=== PATIENT | male | born 1935 | race Caucasian/White ===

== ENCOUNTER 2017-01-03 12:42 | Inpatient (IN) | payer MEDICARE, OTHER ==
[~2017-01-03] VITALS: Ht 175.3 cm; Wt 93.0 kg
[2017-01-03] MEDS ORDERED: SOD CHLORIDE 0.9% 1,000 ML IV STA (12:47)
[2017-01-03] MEDS ORDERED: ONDANSETRON 4 MG INJ IV STA (12:47)
[2017-01-03] MEDS ORDERED: LOSA50TA6 PO (13:23)
[2017-01-03] MEDS ORDERED: ATOR40TA68 PO (13:24)
[2017-01-03] MEDS ORDERED: RIVA20TA PO (13:24)
[2017-01-03] MEDS ORDERED: CARV25TA79 PO (13:24)
[2017-01-03] MEDS ORDERED: SPIR25TA PO (13:25)
[2017-01-03] MEDS ORDERED: CANA300T PO (13:26)
[2017-01-03] MEDS ORDERED: SITA100T8 PO (13:26)
[2017-01-03] MEDS ORDERED: RANI150T5 PO (13:27)
[2017-01-03] MEDS ORDERED: TAMS-14 PO (13:27)
[2017-01-03] MEDS ORDERED: GLIM4TAB PO (13:27)
[2017-01-03 13:28] LABS: ADD SCAN DIFF NO
[2017-01-03] MEDS ORDERED: DOCU250C58 PO (13:28)
[2017-01-03] MEDS ORDERED: FER325 PO (13:28)
[2017-01-03] MEDS ORDERED: BUDE6HFA INHALATION (13:29)
[2017-01-03] MEDS ORDERED: LANT3I SC (13:29)
[2017-01-03 13:30] LABS: ABNORMAL IP MESSAGE 1; HEMATOCRIT 16.8 % (42.0-52.0); MEAN CORPUSCULAR HEMOGLOBIN 27.7 pg (29.0-33.0); MEAN CORPUSCULAR HGB CONC 29.2 g/dl (32.0-37.0); MEAN CORPUSCULAR VOLUME 94.9 fl (82.0-101.0); MEAN PLATELET VOLUME 9.9 fl (7.4-10.4); PLATELET COUNT 235 10^3/UL (140-415); RED BLOOD COUNT 1.77 10^6/ul (4.70-6.10); RED CELL DISTRIBUTION WIDTH 14.6 % (11.5-14.5)
[2017-01-03] MEDS ORDERED: NIFE30TA60 PO (13:30)
[2017-01-03 13:46] LABS: INR 2.19; PROTIME 24.6 Sec (12.2-14.2); PT RATIO 1.9
[2017-01-03 13:54] LABS: ALBUMIN 3.3 g/dl (3.3-4.9); ALBUMIN/GLOBULIN RATIO 1.26; CALCIUM 8.6 mg/dl (8.4-10.2); CREATININE 1.51 mg/dl (0.61-1.24); POTASSIUM 4.2 mmol/L (3.5-5.1); TOTAL PROTEIN 5.9 g/dl (6.1-8.1)
[2017-01-03 14:00] LABS: BASOPHILS % 0.3 % (0.0-2.0); EOSINOPHILS # 0.1 10^3/ul (0.0-0.5); EOSINOPHILS % 1.1 % (0.0-7.0); LYMPHOCYTES # 1.4 10^3/ul (0.8-2.9); LYMPHOCYTES % 17.5 % (15.0-51.0); MONOCYTE # 0.5 10^3/ul (0.3-0.9); MONOCYTES % 6.5 % (0.0-11.0); NEUTROPHIL # 5.8 10^3/ul (1.6-7.5); NEUTROPHILS % 73.8 % (39.0-77.0)
[2017-01-03] MEDS ORDERED: FAMOTIDINE 20 MG INJ IV ONE (14:00)
[2017-01-03 14:01] LABS: HEMOGLOBIN 4.9 g/dl (14.0-18.0)
[2017-01-03 14:08] LABS: TROPONIN-I 0.022 ng/ml (0.00-0.12)
[2017-01-03] MEDS ORDERED: FUROSEMIDE 20 MG INJ IV ONE ×2 (15:00→16:00)
[2017-01-03] MEDS ORDERED: ONDANSETRON 4 MG INJ IV PRN ×2 (15:00→16:00)
[2017-01-03] MEDS ORDERED: ACETAMINOPHEN 325 MG TAB PO PRN ×2 (15:00→16:00)
[2017-01-03 15:30] VITALS: TEMP 97.8
[2017-01-03 15:57] LABS: IRON 18 ug/dl (35-150)
[2017-01-03] MEDS ORDERED: GLUCOSE GEL 15 GRAM TUBE PO PRN ×2 (16:00)
[2017-01-03] MEDS ORDERED: GLUCOSE GEL 15 GRAM TUBE BUCCAL PRN (16:00)
[2017-01-03] MEDS ORDERED: HYPOGLYCEMIA PROTOCOL when Glucose is <70 mg/dL or symptomatic <90 mg/dL. XX ONE (16:00)
[2017-01-03] MEDS ORDERED: Discontinue Glyburide, Glipizide, and/or Glimepiride prior to starting Insulin XX ONE (16:00)
[2017-01-03] MEDS ORDERED: morphine 2 MG INJ IV PRN (16:00)
[2017-01-03] MEDS ORDERED: ALBUTEROL/IPRATROPIUM (NEB) 3 ML AMP HHN PRN (16:00)
[2017-01-03] MEDS: PANTOPRAZOLE 40 MG INJ IV SCH ×2 (16:00→20:53)
[2017-01-03] MEDS ORDERED: DEXTROSE 50% 50 ML SYRINGE IV PRN ×2 (16:00)
[2017-01-03] MEDS ORDERED: GLUCAGON 1 MG INJ IM PRN (16:00)
[2017-01-03] MEDS ORDERED: NACL 0.9% 3 ML SYG IV SCH (16:00)
[2017-01-03 16:07] LABS: TOTAL IRON BINDING CAPACITY 381 ug/dl (241-421)
[2017-01-03 16:12] LABS: ADD UMIC YES; URINE BILIRUBIN (Dip) NEGATIVE (NEGATIVE); URINE BLOOD (Dip) NEGATIVE (NEGATIVE); URINE COLOR LT. YELLOW (YELLOW); URINE GLUCOSE (Dip) >=1000 % (NEGATIVE); URINE KETONES (Dip) NEGATIVE (NEGATIVE); URINE LEUKOCYTE ESTERASE (Dip) TRACE (NEGATIVE); URINE NITRITE (Dip) NEGATIVE (NEGATIVE); URINE TOTAL PROTEIN (Dip) NEGATIVE (NEGATIVE); URINE UROBILINOGEN (Dip) 0.2 E.U./dL (0.1-1.0)
[2017-01-03 16:31] LABS: THYROID STIMULATING HORMONE 1.41 MIU/L (0.465-4.680)
[2017-01-03 16:35] LABS: FERRITIN 6.6 ng/ml (11.1-264.0)
[2017-01-03 16:38] LABS: BACTERIA,URINE FEW; TRANSITIONAL EPI CELLS,URINE FEW; URINE RBCS NONE SEEN /HPF (0)
[2017-01-03 16:51] VITALS: BP 168/71; PULSE 78; RESP 18
--- NOTE | 2017-01-03 16:51 | ERA ---
ER Documentation Chief Complaint Date/Time DATE: 01/03/17 TIME: 16:44 Chief Complaint GENERAL WEAKNESS FOR THE PAST FEW DAYS WITH BLACK STOOLS . MILD AP HPI 81-year-old male is brought in by ambulance for black stools for the last few days with generalized weakness, tiredness. He has a history of an ulcer. He denies abdominal pain currently. He has had no fevers and chills. Has occasional chest pain but no chest pain now. ROS All systems reviewed and are negative except as per history of present illness. Medications Home Meds Reported Medications Nifedipine* (Nifedipine ER*) 30 Mg Tablet.sa, 30 MG PO DAILY, TAB.SA 01/03/17 Insulin Glargine* (Lantus*) 100 Unit/Ml Soln, 20 UNIT SC QHS, #1 VIAL 01/03/17 Budesonide-Formoterol Fumarate* (Symbicort*) 160-4.5 Hfa.aer.ad, 2 PUFF INHALATION BID, #1 EACH 01/03/17 Ferrous Sulfate* (Ferrous Sulfate*) 325 Mg Tabec, 325 MG PO DAILY, TAB 01/03/17 Docusate Sodium* (Colace*) 250 Mg Capsule, 250 MG PO BID, #60 CAP 01/03/17 Tamsulosin Hcl* (Flomax*) 0.4 Mg Cap.er.24h, 0.4 MG PO DAILY, CAP 01/03/17 Ranitidine Hcl* (Ranitidine Hcl*) 150 Mg Tablet, 150 MG PO HS, #30 TAB 01/03/17 Glimepiride* (Glimepiride*) 4 Mg Tablet, 4 MG PO WITH BREAKFAST DINNE, TAB 01/03/17 Canagliflozin (Invokana) 300 Mg Tablet, 300 MG PO DAILY, TAB 01/03/17 Sitagliptin* (Januvia*) 100 Mg Tablet, 100 MG PO DAILY, #30 TAB 01/03/17 Spironolactone* (Aldactone*) 25 Mg Tablet, 12.5 MG PO DAILY Y for PRN, #60 TAB 01/03/17 Atorvastatin* (Atorvastatin*) 40 Mg Tablet, 40 MG PO QHS, #30 TAB 01/03/17 Carvedilol* (Carvedilol*) 25 Mg Tablet, 25 MG PO BID, #60 TAB 01/03/17 Rivaroxaban* (Xarelto*) 20 Mg Tablet, 20 MG PO WITH DINNER, TAB 01/03/17 Losartan Potassium* (Losartan Potassium*) 50 Mg Tablet, 50 MG PO BID, TAB 01/03/17 Allergies Allergies: Coded Allergies: No Known Allergy (Unverified , 01/03/17) PMhx/Soc History of Surgery: Yes (CABG, AICD) Anesthesia Reaction: No Hx Neurological Disorder: No Hx Respiratory Disorders: Yes (Asthma) Hx Cardiac Disorders: Yes (CHF, HTN) Hx Psychiatric Problems: No Hx Miscellaneous Medical Probl: Yes (DM II, Hyperlipidemia) Hx Alcohol Use: No Hx Substance Use: No Hx Tobacco Use: Yes Smoking Status: Former smoker Physical Exam Vitals Vital Signs Date Time Temp Pulse Resp B/P Pulse Ox O2 Delivery O2 Flow Rate FiO2 01/03/17 15:30 97.8 69 17 147/58 100 Room Air 01/03/17 15:00 97.8 69 13 131/53 97 Room Air 01/03/17 13:41 69 12 116/47 96 Room Air 01/03/17 13:08 98.0 74 20 101/50 98 Physical Exam Const: [] No distress Head: Atraumatic Eyes: Pale infraorbital conjunctiva. PERRLA, EOMI ENT: Normal External Ears, Nose and Mouth. Neck: Full range of motion..~ No meningismus. Resp: Clear to auscultation bilaterally Cardio: Regular rate and rhythm, no murmurs Abd: Soft, non tender, non distended. Normal bowel sounds Skin: No petechiae or rashes Back: No midline or flank tenderness Ext: No cyanosis, or edema Neur: Awake and alert and oriented 3, no focal deficit Psych: Normal Mood and Affect Result Diagram: 01/03/17 1320 01/03/17 1320 Results 24 hrs Laboratory Tests Test 01/03/17 13:20 01/03/17 15:45 White Blood Count 7.910^3/ul Red Blood Count 1.7710^6/ul Hemoglobin 4.9g/dl Hematocrit 16.8% Mean Corpuscular Volume 94.9fl Mean Corpuscular Hemoglobin 27.7pg Mean Corpuscular Hemoglobin Concent 29.2g/dl Red Cell Distribution Width 14.6% Platelet Count 18829^3/UL Mean Platelet Volume 9.9fl Neutrophils % 73.8% Lymphocytes % 17.5% Monocytes % 6.5% Eosinophils % 1.1% Basophils % 0.3% Nucleated Red Blood Cells % 0.0/100WBC Neutrophils # 5.810^3/ul Lymphocytes # 1.410^3/ul Monocytes # 0.510^3/ul Eosinophils # 0.110^3/ul Basophils # 0.010^3/ul Nucleated Red Blood Cells # 0.010^3/ul Prothrombin Time 24.6Sec Prothrombin Time Ratio 1.9 INR International Normalized Ratio 2.19 Activated Partial Thromboplast Time 38.0Sec Sodium Level 138mmol/L Potassium Level 4.2mmol/L Chloride Level 112mmol/L Carbon Dioxide Level 20mmol/L Anion Gap 10 Blood Urea Nitrogen 37mg/dl Creatinine 1.51mg/dl Glucose Level 187mg/dl Calcium Level 8.6mg/dl Iron Level 18ug/dl Total Iron Binding Capacity 381ug/dl Percent Iron Saturation 5% SAT Ferritin 6.6ng/ml Total Bilirubin 0.0mg/dl Direct Bilirubin 0.00mg/dl Indirect Bilirubin 0.0mg/dl Aspartate Amino Transf (AST/SGOT) 15IU/L Alanine Aminotransferase (ALT/SGPT) 35IU/L Alkaline Phosphatase 47IU/L Troponin I 0.022ng/ml B-Type Natriuretic Peptide 1500PG/ML Total Protein 5.9g/dl Albumin 3.3g/dl Globulin 2.60g/dl Albumin/Globulin Ratio 1.26 Thyroid Stimulating Hormone (TSH) 1.410MIU/L Free Thyroxine 0.97ng/dl Urine Color LT. YELLOW Urine Clarity CLEAR Urine pH 5.0 Urine Specific [place] 1.010 Urine Ketones NEGATIVE Urine Nitrite NEGATIVE Urine Bilirubin NEGATIVE Urine Urobilinogen 0.2 E.U./dL Urine Leukocyte Esterase TRACE Urine Microscopic RBC NONE SEEN/HPF Urine Microscopic WBC 10-25/HPF Urine Transitional Epithelial Cells FEW Urine Bacteria FEW Urine Hemoglobin NEGATIVE Urine Glucose >=1000% Urine Total Protein NEGATIVE Current Medications Medications (Trade) Dose Ordered Sig/Rimma Route PRN Reason Start Time Stop Time Status Last Admin Dose Admin Sodium Chloride (NS) 1,000 ml @ 1,000 mls/hr Q1H STAT IV 01/03/17 12:47 01/03/17 13:46 DC 01/03/17 13:41 Ondansetron HCl (Zofran Inj) 4 mg ONCE STAT IV 01/03/17 12:47 01/03/17 12:51 DC 01/03/17 14:44 Famotidine (Pepcid Iv) 20 mg ONCE ONCE IV 01/03/17 14:00 01/03/17 14:01 DC 01/03/17 14:44 Ondansetron HCl (Zofran Inj) 4 mg ER BRIDGE PRN IV NAUSEA AND/OR VOMITING 01/03/17 15:00 01/04/17 14:59 Acetaminophen (Tylenol Tab) 650 mg ER BRIDGE PRN PO MILD PAIN/FEVER 01/03/17 15:00 01/04/17 14:59 Furosemide (Lasix) 20 mg ONCE ONCE IV 01/03/17 15:00 01/03/17 15:01 DC 01/03/17 16:08 Carvedilol (Coreg) 6.25 mg BID PO 01/03/17 21:00 Insulin Glargine (Lantus) 20 unit QHS SC 01/03/17 21:00 Ranitidine HCl (Zantac) 150 mg HS PO 01/03/17 21:00 Tamsulosin HCl (Flomax) 0.4 mg DAILY PO 01/04/17 09:00 Salmeterol Xinafoate/ Fluticasone (Advair 250/50 Diskus) 1 inh BID INH 01/03/17 21:00 Insulin Aspart (Novolog Insulin Pen) NOVOLOG *MODERATE* ALGORI... Q4 SC 01/03/17 17:00 Miscellaneous Information (* Miscellaneous Pharmacy Order) HYPOGLYCEMIA PROTOCOL w... ONCE ONCE XX 01/03/17 16:00 01/03/17 16:01 DC Miscellaneous Information (* Miscellaneous Pharmacy Order) Discontinue Glyburide, Glipizide,... ONCE ONCE XX 01/03/17 16:00 01/03/17 16:01 DC Miscellaneous Information (* Miscellaneous Pharmacy Order) Discontinue all previ... ONCE ONCE XX 01/03/17 16:00 01/03/17 16:01 DC Albuterol/ Ipratropium (Duoneb) 3 ml Q4H RESP THERAPY PRN HHN SHORTNESS OF BREATH 01/03/17 16:00 Furosemide (Lasix) 20 mg ONCE ONCE IV 01/03/17 16:00 01/03/17 16:01 DC Miscellaneous Information 1 ea NOTE XX 01/03/17 16:00 Glucose (Glutose) 15 gm Q15M PRN PO DECREASED GLUCOSE 01/03/17 16:00 Glucose (Glutose) 22.5 gm Q15M PRN PO DECREASED GLUCOSE 01/03/17 16:00 Dextrose (D50w Syringe) 25 ml Q15M PRN IV DECREASED GLUCOSE 01/03/17 16:00 Dextrose (D50w Syringe) 50 ml Q15M PRN IV DECREASED GLUCOSE 01/03/17 16:00 Glucagon (Glucagen) 1 mg Q15M PRN IM DECREASED GLUCOSE 01/03/17 16:00 Glucose (Glutose) 15 gm Q15M PRN BUCCAL DECREASED GLUCOSE 01/03/17 16:00 IV Flush (NS 3 ml) 3 ml PER PROTOCOL IV 01/03/17 16:00 Ondansetron HCl (Zofran Inj) 4 mg Q6H PRN IV NAUSEA AND/OR VOMITING 01/03/17 16:00 Acetaminophen (Tylenol Tab) 650 mg Q6H PRN PO PAIN LEVEL 1-3 OR FEVER 01/03/17 16:00 Morphine Sulfate (morphine) 2 mg Q4H PRN IV PAIN LEVEL 7-10 01/03/17 16:00 Pantoprazole (Protonix Iv) 40 mg BID IV 01/03/17 16:00 Procedures/MDM Severe symptomatic blood loss anemia. This is likely secondary to an upper GI bleed as the patient does have a history of an ulcer that has bled in the past. Was given Pepcid IV. No bright red blood only reports of melanotic stools. Patient was given a liter of IV fluid as well as begin and blood transfusion of 3 units of blood. Still feels tired and weak. He is going to be admitted to telemetry because of his paced rhythm and occasional chest pain. No signs of cardiac ischemia currently. There is evidence of congestive heart failure with elevated BNP in a patient with a cardiac history. Lungs are clear. Spoke with , who will be admitting the patient. I placed [address] Alvarado, I believe he will call back as I have heard he is in a procedure. EKG interpretation: Paced rhythm, no further interpretation is possible general farmer interpretation: Paced rhythm without other arrhythmias Departure Diagnosis: Primary Impression: Upper GI bleed Additional Impressions: Severe anemia Renal insufficiency DEA CALERO DO January 03, 2017 16:51
[2017-01-03 16:57] LABS: WHITE BLOOD COUNT 7.9 10^3/ul (4.8-10.8)
[2017-01-03] MEDS: INSULIN ASPART [NOVOLOG] 3 ML PEN SC SCH ×2 (17:00→21:04)
[2017-01-03 17:03] VITALS: PULSE 68
[2017-01-03 17:37] LABS: FOLATE 10.6 ng/ml (2.8-20.0)
[2017-01-03] MEDS ORDERED: DIPHENHYDRAMINE 50 MG INJ IV PRN (18:00)
[2017-01-03 18:06] VITALS: Ht 175.3 cm; Wt 93.0 kg
--- NOTE | 2017-01-03 18:24 | CONS ---
Date/Time of Note Date/Time of Note DATE: 01/03/17 TIME: 18:14 Assessment/Plan Assessment/Plan Additional Assessment/Plan Acute anemia Evaluate GI bleed versus chronic iron deficiency vs other etiology Monitor H&H every 8 hours, transfuse 2 units for hemoglobin less than 7.5 Monitor labs Continue PPI therapy EGD tomorrow with Dr. Alvarado, pt advised of R/B/A to procedure and provide informed consent to proceed Report of rectal bleeding May require colonoscopy CT abdomen after EGD History of defibrillator, history of CABG Management per Primary Continue home medications May require cardiology consult Further recommendations depend on clinical course Patient seen in collaboration with Dr. Alvraado Consultation Date/Type/Reason Admit Date/Time January 03, 2017 at 14:41 Type of Consultation: Gastroenterology Reason for Consultation Acute anemia Hx of Present Illness Mr. Tay Coker is a 81-year-old man that was brought via ambulance to [facility] emergency room for further evaluation of weakness and melena stools. Per son at bedside patient has been growing increasingly weak for the last 3-4 days and he possibly had melena stools for the last 4-5 days. Patient also reports epigastric and left lower quadrant abdominal pain with palpation. Patient also reports a few episodes of blood in toilet bowl after having a bowel movement. Patient denies having previous colonoscopy, family history of colon cancer. Grandson with ulcerative colitis. Patient reports history of gastric ulcer 10 years ago and currently takes Zantac daily. Patient also has past medical history of CABG 20 years ago, insertion of defibrillator 7 years ago with recent defibrillator replacement 7 months ago. Social History Smoking Status: Former smoker Exam/Review of Systems Vital Signs Vitals Vital Signs Date Time Temp Pulse Resp B/P Pulse Ox O2 Delivery O2 Flow Rate FiO2 01/03/17 17:03 68 01/03/17 16:51 97.6 18 168/71 99 Room Air Exam Constitutional: alert, oriented, well developed Psych: nl mood/affect Head: normocephalic Eyes: EOMI, nl conjunctiva, nl lids ENMT: nl external ears & nose, nl lips & teeth, nl nasal mucosa & septum Respiratory: clear to auscultation, normal air movement Cardiovascular: regular rate and rhythm Gastrointestinal: soft, epigastric and left lower quadrant tenderness Musculoskeletal: nl extremities to inspection Neurological: MARKETING AND COMMUNICATIONS OFFICER II-XII intact Results Result Diagram: 01/03/17 1320 01/03/17 1320 Results 24 hrs Laboratory Tests Test 01/03/17 13:20 01/03/17 15:45 01/03/17 17:28 White Blood Count 7.9 Red Blood Count 1.77 L Hemoglobin 4.9 *L Hematocrit 16.8 L Mean Corpuscular Volume 94.9 Mean Corpuscular Hemoglobin 27.7 L Mean Corpuscular Hemoglobin Concent 29.2 L Red Cell Distribution Width 14.6 H Platelet Count 235 Mean Platelet Volume 9.9 Neutrophils % 73.8 Lymphocytes % 17.5 Monocytes % 6.5 Eosinophils % 1.1 Basophils % 0.3 Nucleated Red Blood Cells % 0.0 Neutrophils # 5.8 Lymphocytes # 1.4 Monocytes # 0.5 Eosinophils # 0.1 Basophils # 0.0 Nucleated Red Blood Cells # 0.0 Prothrombin Time 24.6 H Prothrombin Time Ratio 1.9 INR International Normalized Ratio 2.19 Activated Partial Thromboplast Time 38.0 H Sodium Level 138 Potassium Level 4.2 Chloride Level 112 H Carbon Dioxide Level 20 L Anion Gap 10 Blood Urea Nitrogen 37 H Creatinine 1.51 H Glucose Level 187 Calcium Level 8.6 Iron Level 18 L Total Iron Binding Capacity 381 Percent Iron Saturation 5 L Ferritin 6.6 L Total Bilirubin 0.0 L Direct Bilirubin 0.00 Indirect Bilirubin 0.0 Aspartate Amino Transf (AST/SGOT) 15 Alanine Aminotransferase (ALT/SGPT) 35 Alkaline Phosphatase 47 Troponin I 0.022 B-Type Natriuretic Peptide 1500 H Total Protein 5.9 L Albumin 3.3 Globulin 2.60 Albumin/Globulin Ratio 1.26 Vitamin B12 Level 229 L Folate 10.6 Thyroid Stimulating Hormone (TSH) 1.410 Free Thyroxine 0.97 Urine Color LT. YELLOW Urine Clarity CLEAR Urine pH 5.0 Urine Specific [place] 1.010 Urine Ketones NEGATIVE Urine Nitrite NEGATIVE Urine Bilirubin NEGATIVE Urine Urobilinogen 0.2 E.U./dL Urine Leukocyte Esterase TRACE H Urine Microscopic RBC NONE SEEN Urine Microscopic WBC 10-25 Urine Transitional Epithelial Cells FEW Urine Bacteria FEW Urine Hemoglobin NEGATIVE Urine Glucose >=1000 Urine Total Protein NEGATIVE Bedside Glucose 193 Medications Medications Current Medications Insulin Glargine (Lantus) 20 unit QHS SC ; Start 01/03/17 at 21:00 Ranitidine HCl (Zantac) 150 mg HS PO ; Start 01/03/17 at 21:00 Tamsulosin HCl (Flomax) 0.4 mg DAILY PO ; Start 01/04/17 at 09:00 Salmeterol Xinafoate/ Fluticasone (Advair 250/50 Diskus) 1 inh BID INH ; Start 01/03/17 at 21:00 Insulin Aspart (Novolog Insulin Pen) NOVOLOG *MODERATE* ALGORI... Q4 SC ; Start 01/03/17 at 17:00 Miscellaneous Information 1 ea NOTE XX ; Start 01/03/17 at 16:00 Glucose (Glutose) 15 gm Q15M PRN PO DECREASED GLUCOSE; Start 01/03/17 at 16:00 Glucose (Glutose) 22.5 gm Q15M PRN PO DECREASED GLUCOSE; Start 01/03/17 at 16: 00 Dextrose (D50w Syringe) 25 ml Q15M PRN IV DECREASED GLUCOSE; Start 01/03/17 at 16:00 Dextrose (D50w Syringe) 50 ml Q15M PRN IV DECREASED GLUCOSE; Start 01/03/17 at 16:00 Glucagon (Glucagen) 1 mg Q15M PRN IM DECREASED GLUCOSE; Start 01/03/17 at 16:00 Glucose (Glutose) 15 gm Q15M PRN BUCCAL DECREASED GLUCOSE; Start 01/03/17 at 16 :00 Ondansetron HCl (Zofran Inj) 4 mg Q6H PRN IV NAUSEA AND/OR VOMITING; Start at 16:00 Acetaminophen (Tylenol Tab) 650 mg Q6H PRN PO PAIN LEVEL 1-3 OR FEVER; Start at 16:00 Morphine Sulfate (morphine) 2 mg Q4H PRN IV PAIN LEVEL 7-10; Start 01/03/17 at 16:00 Pantoprazole (Protonix Iv) 40 mg BID IV ; Start 01/03/17 at 16:00 Carvedilol (Coreg) 25 mg BID PO ; Start 01/03/17 at 21:00 Nifedipine (Procardia Xl) 30 mg DAILY PO ; Start 01/03/17 at 18:00 Diphenhydramine HCl (Benadryl) 25 mg Q6H PRN IV ITCHING; Start 01/03/17 at 18: 00; Status BRUNA CORRALES January 03, 2017 18:24
--- NOTE | 2017-01-03 18:40 | HP ---
DATE OF ADMISSION: 01/03/2017 ADMITTING PHYSICIAN: Dr. Meneses PRIMARY CARE PHYSICIAN: ____ OUTPATIENT UX DEVELOPER: Dr. Alba. CHIEF COMPLAINT ON ADMISSION: Severe weakness and shortness of breath. HISTORY OF PRESENT ILLNESS: This is a 81-year-old male with history of coronary artery disease, sta tus post coronary artery bypass surgery 20 years ago, atrial fibrillation, status post AICD, current ly on Xarelto, diabetes mellitus, hyperlipidemia, hypertension, chronic anemia, previous history of GI bleed, apparently years ago was put on Zantac or ranitidine at that time. Had no recurrence of GI bleed since then, has been on Xarelto for 1 year, who presented to the emergency department with complaint of generalized weakness, shortness of breath for the past 4 to 5 days. The patient speaks Lebanese, but also speaks Malagasy. He is able to answer some of the questions. He has his son at the bedside who is able to fill in with additional information. According to the patient and the gerber suarez's son, he has been noted to be short of breath with exertion; therefore, dyspnea on exertion, generalized weakness, dizziness for the past 3 to 4 days. Also, the patient reports that he has bee n having dark stools for the past 4 to 5 days. He denies any hematemesis. He denies any bright red blood per rectum. He only reports melena. He denies any chest pain, chest pressure or abdominal p ain. He never had a colonoscopy before. He cannot remember if he had an EGD when he had similar ep isodes years ago. He was told at that point that he had bleeding from his stomach and was put on Za ntac. In the emergency department, he was found to have a hemoglobin of 4.9 with stable vital signs . He has been started on blood transfusion. Since then, he is now hypertensive, therefore his card iac medication will be resumed. He denies any nausea or vomiting. He is currently n.p.o.; however. Dr. Alvarado has been consulted. He will be seeing the patient and is planning for endoscopy and po ssible colonoscopy tomorrow. The patient is in stable condition. He is on room air and hypovolemic to euvolemic at this time. He denies any chest pain. ALLERGIES: NO KNOWN ALLERGIES. PAST MEDICAL HISTORY: 1. Coronary artery disease, status post coronary artery bypass surgery 20 years ago. 2. Status post ICD placement. 3. Likely systolic chronic congestive heart failure, compensated, currently. 4. Atrial fibrillation, on Xarelto. 5. Diabetes mellitus, insulin requiring. 6. Hyperlipidemia. 7. Hypertension. 8. Chronic anemia. Patient is on iron. 9. Previous history of GI bleed according to patient, years ago. 10. Morbid obesity. PAST SURGICAL HISTORY: Status post coronary artery bypass surgery 20 years ago. REVIEW OF SYSTEMS: As per HPI. OUTPATIENT MEDICATIONS: 1. Flomax 0.4 mg p.o. daily. 2. Ferrous sulfate 325 mg p.o. daily. 3. Xarelto 20 mg p.o. at bedtime. 4. Atorvastatin 40 mg p.o. at bedtime. 5. Carvedilol 25 mg p.o. b.i.d. 6. Losartan 50 mg p.o. b.i.d. 7. Nifedipine ER 30 mg p.o. daily. 8. Spironolactone 12.5 mg p.o. daily as needed for edema. 9. Symbicort 2 puffs inhaled b.i.d. 10. Colace 250 mg p.o. b.i.d. 11. Ranitidine 150 mg p.o. at bedtime. 12. Invokana 300 mg p.o. daily. 13. Glimepiride 40 mg p.o. b.i.d. 14. Lantus 20 units subcutaneously at bedtime. 15. Januvia 100 mg p.o. daily. PHYSICAL EXAMINATION: VITAL SIGNS: Temperature is 97.6, heart rate of 68, respiratory rate 18, blood pressure 168/71, the patient is saturating 99% on room air. GENERAL: He is alert and oriented x4. He is very pleasant, stable currently with no complaints. HEENT: Pupils are equally round and reactive to light. Anicteric sclerae, but pale sclerae are not ed. NECK: No JVD, no thyromegaly. Extraocular muscles are intact. HEART: Regular rate and rhythm. No murmur, rubs, or gallops. LUNGS: Clear to auscultation bilaterally. ABDOMEN: Obese but soft and nontender. Bowel sounds are present. EXTREMITIES: No clubbing or cyanosis. He does have trace edema lower extremity. NEUROLOGIC: Grossly intact. LABORATORY DATA: White blood cell count is 7.9, hemoglobin of 4.9, hematocrit 16.8, platelet count of 235. Chemistry with a sodium of 138, potassium 4.2, chloride 112, bicarbonate of 20, BUN 37, cre atinine 1.5, glucose of 187, calcium of 8.6. Liver function testing within normal. Troponin 0.022. BNP of 1500. Total protein 5.9, albumin 3.3. INR 2.19, PT 24.6, PTT 38.0. Urinalysis is grossly negative except for some trace leukocyte esterase. RADIOLOGICAL DATA: Chest x-ray is ordered for the morning after volume repletion. EKG shows a paced rhythm. ASSESSMENT AND PLAN:. This is a 81-year-old male with: 1. Severe symptomatic anemia secondary to gastrointestinal bleeding, likely upper gastrointestinal bleeding while the patient is on anticoagulation and is coagulopathic, currently with INR of 2.14 as far as we know. Of note, he is on Xarelto. We will transfuse 3 units of packed red blood cells at this time. Repeat CBC in a.m. He is also scheduled to get 2 units of fresh frozen plasma in order to reverse temporarily his coagulopathy. Dr. Alvarado has been consulted. The patient is n.p.o. exc ept for ice chips and meds. I also started him on Protonix 40 mg IV b.i.d. 2. Coronary artery disease, likely ischemic cardiomyopathy, status post coronary artery bypass surg zhane. He is currently chest pain free. He is at best euvolemic to hypovolemic. He is getting blood transfusion. His cardiac enzymes on admission are negative. We will rule him out for acute mascorro ry syndrome, especially with anticipation of the procedure tomorrow. At this point, I will continue his carvedilol as his blood pressure will permit and also his nifedipine. I will discontinue spiron olactone and losartan for now. He already has an ICD in place and paced rhythm on monitor. An echo cardiogram has been ordered to evaluate his ejection fraction and a repeat chest x-ray in the [facility] g also ordered. 3. Atrial fibrillation and has been on Xarelto, which had to be discontinued at this point given th e life threatening gastrointestinal bleed and severe anemia. I will discuss with his corporation officer t he findings after esophagogastroduodenoscopy and depending on the severity of his findings, he will have to decide regarding anticoagulation in the future. 4. Diabetes mellitus. Check hemoglobin A1c. Continue Lantus for now. I will discontinue all othe r oral agents and sliding scale insulin has been started. 5. Hyperlipidemia. Check fasting lipid panel and resume statin therapy once the patient is to take p.o. 6. Hypertension. Continue current medications and will add p.r.n. medications as needed. 7. Benign prostatic hypertrophy. Continue Flomax. 8. Chronic bronchitis versus chronic obstructive pulmonary disease, this is per patient report. Co ntinue Symbicort and will also add DuoNebs as needed for shortness of breath and wheezing. 9. Morbid obesity. 10. Prophylaxis: Sequential compression devices to lower extremity for deep venous thrombosis prop hylaxis and the patient already on b.i.d. Protonix. DISPOSITION: The patient is admitted to telemetry. Currently he is getting blood product transfusi on. Dr. Alvarado will see him and hopefully he will remain stable for endoscopy in a.m. Dictated By: AMAYA RADER/BRENDAN Conf#: [id number] DID#: [id number]
[2017-01-03 19:51] VITALS: BP 133/63; RESP 20
[2017-01-03 20:00] VITALS: PULSE 75
[2017-01-03 20:48] LABS: TROPONIN-I 0.016 ng/ml (0.00-0.12)
[2017-01-03 20:49] LABS: CK-MB 2.32 ng/ml (0.0-2.4)
[2017-01-03] MEDS: RANITIDINE 150 MG TAB PO SCH (20:53)
[2017-01-03] MEDS: INSULIN GLARGINE [LANtus] 3 ML PEN SC SCH (20:59)
[2017-01-03] MEDS: SALMETEROL/FLUTICASONE 250/50 INHA INH SCH (21:17)
[2017-01-03] MEDS: NIFEdipine (XL) 30 MG TAB PO SCH (21:18)
[2017-01-03 23:46] VITALS: BP 154/70; RESP 20
[2017-01-04] VITALS (14 sets, daily range): BP systolic 120–177; BP diastolic 56–78; PULSE 68–84; RESP 15–24
[2017-01-04] MEDS ORDERED: FUROSEMIDE 20 MG INJ IV ONE (00:51)
[2017-01-04] MEDS: INSULIN ASPART [NOVOLOG] 3 ML PEN SC SCH ×4 (01:00→13:54)
[2017-01-04 06:32] LABS: ADD SCAN DIFF NO
[2017-01-04 06:45] LABS: BASOPHILS % 0.3 % (0.0-2.0); EOSINOPHILS # 0.1 10^3/ul (0.0-0.5); EOSINOPHILS % 1.4 % (0.0-7.0); HEMATOCRIT 24.5 % (42.0-52.0); HEMOGLOBIN 7.8 g/dl (14.0-18.0); LYMPHOCYTES # 1.4 10^3/ul (0.8-2.9); LYMPHOCYTES % 18.5 % (15.0-51.0); MEAN CORPUSCULAR HEMOGLOBIN 28.8 pg (29.0-33.0); MEAN CORPUSCULAR HGB CONC 31.8 g/dl (32.0-37.0); MEAN CORPUSCULAR VOLUME 90.4 fl (82.0-101.0); MEAN PLATELET VOLUME 9.9 fl (7.4-10.4); MONOCYTE # 0.6 10^3/ul (0.3-0.9); MONOCYTES % 8.2 % (0.0-11.0); NEUTROPHIL # 5.2 10^3/ul (1.6-7.5); NEUTROPHILS % 71.3 % (39.0-77.0); PLATELET COUNT 234 10^3/UL (140-415); RED BLOOD COUNT 2.71 10^6/ul (4.70-6.10); RED CELL DISTRIBUTION WIDTH 15.6 % (11.5-14.5); WHITE BLOOD COUNT 7.3 10^3/ul (4.8-10.8)
[2017-01-04 07:09] LABS: INR 1.24; PROTIME 15.7 Sec (12.2-14.2); PT RATIO 1.2
[2017-01-04 07:10] LABS: PARTIAL THROMBOPLASTIN TIME 31.8 Sec (25.0-35.0)
[2017-01-04 07:19] LABS: ALBUMIN 3.4 g/dl (3.3-4.9)
[2017-01-04 07:20] LABS: POTASSIUM 3.3 mmol/L (3.5-5.1)
[2017-01-04 07:22] LABS: ALBUMIN/GLOBULIN RATIO 1.21; BILIRUBIN,INDIRECT 0.4 mg/dl (0-1.1); BILIRUBIN,TOTAL 0.4 mg/dl (0.2-1.3); CREATININE 1.52 mg/dl (0.61-1.24); TOTAL PROTEIN 6.2 g/dl (6.1-8.1)
[2017-01-04 07:24] LABS: CK-MB 1.74 ng/ml (0.0-2.4); TROPONIN-I 0.038 ng/ml (0.00-0.12)
[2017-01-04] MEDS ORDERED: POTASSIUM CHLORIDE 250 ML IVPB STA (07:55)
[2017-01-04] MEDS: SALMETEROL/FLUTICASONE 250/50 INHA INH SCH ×2 (08:56→20:44)
[2017-01-04] MEDS: NIFEdipine (XL) 30 MG TAB PO SCH (09:00)
[2017-01-04] MEDS: TAMSULOSIN (SR) 0.4 MG CAP PO SCH (09:00)
[2017-01-04] MEDS: PANTOPRAZOLE 40 MG INJ IV SCH ×2 (09:11→17:47)
--- NOTE | 2017-01-04 09:13 | RADRPT ---
PROCEDURE: XR Chest. CLINICAL INDICATION: Pulmonary edema. History of COPD. TECHNIQUE: Single frontal view of the chest was obtained. COMPARISON: Chest x-ray 04/05/2009 09:05 a.m. FINDINGS: The soft tissues are normal. There are osteophytes in the thoracic spine. A mediastinotomy was per formed. There is a dual chamber cardiac pacemaker over the upper left chest wall. There are clips in the mediastinum related to surgery. The heart is enlarged. The cardiomediastinal silhouette and hilar structures are normal. The pulmonary vasculature is equilibrated. There is a left-sided aort a. The lungs are clear. The costophrenic angles are normal. IMPRESSION: 1. Status post median sternotomy for coronary artery bypass surgery with a dual chamber cardiac pace maker noted. 2. Cardiomegaly. 3. Interval decrease in the size of a right pleural effusion since 04/05/2009 and 09:06 a.m. 4. Spondylosis of the thoracic spine. RPTAT:AAJJ Physician Clemencia Date Time Electronically viewed and signed by Physician Clemencia on 01/04/2017 09:12 /
[2017-01-04] MEDS ORDERED: LIDOCAINE 2% (SDV) 5 ML INJ ONE (11:29)
[2017-01-04] MEDS ORDERED: PHENYLephrine (100 MCG/ML) 5ML SYG ONE (11:29)
[2017-01-04] MEDS ORDERED: PROPOFOL 20 ML ONE (11:29)
[2017-01-04] MEDS ORDERED: EPHEDrine SULFATE 50 MG/5 ML SYG ONE (11:29)
[2017-01-04] MEDS ORDERED: FENTAnyl 50 MCG/ML VIAL ONE (11:29)
[2017-01-04] MEDS ORDERED: EPINEPHrine 0.1 MG/ML SYG ONE (11:44)
--- NOTE | 2017-01-04 13:01 | PN ---
Date/Time of Note Date/Time of Note DATE: 01/04/17 TIME: 12:41 Assessment/Plan VTE Prophylaxis VTE Prophylaxis Intervention: SCD's Lines/Catheters IV Catheter Type (from Nrs): Peripheral IV Assessment/Plan Assessment/Plan 81-year-old male with: 1. Severe symptomatic anemia secondary to upper gastrointestinal bleeding, s/p EGD with finding of bleeding Ulcer Off Xarelto for now S/p 3 units pRBC overnight and getting 2 more units today Also s/p [address] Alvarado following, serial h/h Clears post EGD and continue PPI. 2. Coronary artery disease, likely ischemic cardiomyopathy, status post coronary artery bypass surgery. Remains chest pain free and euvolemic. His cardiac enzymes are negative. Continue Carvedilol and Nifedipine. Resume Losartan next and Spironolactone at discharge S/p ICD in place and paced rhythm on monitor. CXR wnl Echocardiogram done and results pending. 3. Atrial fibrillation and has been on Xarelto, which had to be discontinued at this point given the life threatening gastrointestinal bleed and severe anemia. 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 4. Diabetes mellitus. Continue Lantus and SSI. A1c 6.6 5. Hyperlipidemia. Check fasting lipid panel and resume statin therapy once more stable. 6. Hypertension. Continue current medications and will add Losartan back on 7. Benign prostatic hypertrophy. Continue Flomax. 8. Chronic bronchitis versus chronic obstructive pulmonary disease, this is per patient report. Continue Symbicort and DuoNebs as needed for shortness of breath and wheezing. 9. YONIS vs CKD: monitor UOP and renal function 10. Morbid obesity. Prophylaxis: Sequential compression devices to lower extremity for deep venous thrombosis prophylaxis and the patient already on b.i.d. Protonix. DISPOSITION: Telemetry, serial h/h after 2 units pRBC given day, follow up further recs from GI s/p EGD today Subjective 24 Hr Interval Summary Free Text/Dictation Patient back from EGD and found to have a bleeding Ulcer. S/p clipping, clears and PPI Follow further recs from GI Exam/Review of Systems Vital Signs Vitals Vital Signs Date Time Temp Pulse Resp B/P Pulse Ox O2 Delivery O2 Flow Rate FiO2 01/04/17 11:32 97.3 84 15 172/78 99 Room Air Intake and Output 01/03/17 01/03/17 01/04/17 15:00 23:00 07:00 Intake Total 1298 ml Output Total 400 ml 980 ml Balance -400 ml 318 ml Exam Constitutional: alert, obese, oriented, well developed Respiratory: clear to auscultation, normal air movement, other (pacer left upper chest wall ) Cardiovascular: nl pulses, regular rate and rhythm Gastrointestinal: non-tender, soft Musculoskeletal: nl extremities to inspection Extremities: normal pulses, other (no edema, clubbing or cyanosis ) Neurological: NARROW FABRIC CALENDERER II-XII intact, nl mental status, nl speech, nl strength Results Result Diagram: 01/04/17 0600 01/04/17 0600 Results 24 hrs Laboratory Tests Test 01/03/17 13:20 01/03/17 15:45 01/03/17 17:28 01/03/17 20:00 White Blood Count 7.9 Red Blood Count 1.77 L Hemoglobin 4.9 *L Hematocrit 16.8 L Mean Corpuscular Volume 94.9 Mean Corpuscular Hemoglobin 27.7 L Mean Corpuscular Hemoglobin Concent 29.2 L Red Cell Distribution Width 14.6 H Platelet Count 235 Mean Platelet Volume 9.9 Neutrophils % 73.8 Lymphocytes % 17.5 Monocytes % 6.5 Eosinophils % 1.1 Basophils % 0.3 Nucleated Red Blood Cells % 0.0 Neutrophils # 5.8 Lymphocytes # 1.4 Monocytes # 0.5 Eosinophils # 0.1 Basophils # 0.0 Nucleated Red Blood Cells # 0.0 Prothrombin Time 24.6 H Prothrombin Time Ratio 1.9 INR International Normalized Ratio 2.19 Activated Partial Thromboplast Time 38.0 H Sodium Level 138 Potassium Level 4.2 Chloride Level 112 H Carbon Dioxide Level 20 L Anion Gap 10 Blood Urea Nitrogen 37 H Creatinine 1.51 H Glucose Level 187 Calcium Level 8.6 Iron Level 18 L Total Iron Binding Capacity 381 Percent Iron Saturation 5 L Ferritin 6.6 L Total Bilirubin 0.0 L Direct Bilirubin 0.00 Indirect Bilirubin 0.0 Aspartate Amino Transf (AST/SGOT) 15 Alanine Aminotransferase (ALT/SGPT) 35 Alkaline Phosphatase 47 Troponin I 0.022 0.016 B-Type Natriuretic Peptide 1500 H Total Protein 5.9 L Albumin 3.3 Globulin 2.60 Albumin/Globulin Ratio 1.26 Vitamin B12 Level 229 L Folate 10.6 Thyroid Stimulating Hormone (TSH) 1.410 Free Thyroxine 0.97 Urine Color LT. YELLOW Urine Clarity CLEAR Urine pH 5.0 Urine Specific [place] 1.010 Urine Ketones NEGATIVE Urine Nitrite NEGATIVE Urine Bilirubin NEGATIVE Urine Urobilinogen 0.2 E.U./dL Urine Leukocyte Esterase TRACE H Urine Microscopic RBC NONE SEEN Urine Microscopic WBC 10-25 Urine Transitional Epithelial Cells FEW Urine Bacteria FEW Urine Hemoglobin NEGATIVE Urine Glucose >=1000 Urine Total Protein NEGATIVE Bedside Glucose 193 Creatine Kinase 92 Creatine Kinase Index 2.5 Creatinine Kinase MB (Mass) 2.32 Test 01/03/17 20:52 01/04/17 01:10 01/04/17 05:10 01/04/17 05:31 Bedside Glucose 193 103 69 L 133 Test 01/04/17 06:00 01/04/17 08:18 White Blood Count 7.3 Red Blood Count 2.71 #L Hemoglobin 7.8 #L Hematocrit 24.5 #L Mean Corpuscular Volume 90.4 Mean Corpuscular Hemoglobin 28.8 L Mean Corpuscular Hemoglobin Concent 31.8 L Red Cell Distribution Width 15.6 H Platelet Count 234 Mean Platelet Volume 9.9 Neutrophils % 71.3 Lymphocytes % 18.5 Monocytes % 8.2 Eosinophils % 1.4 Basophils % 0.3 Nucleated Red Blood Cells % 0.0 Neutrophils # 5.2 Lymphocytes # 1.4 Monocytes # 0.6 Eosinophils # 0.1 Basophils # 0.0 Nucleated Red Blood Cells # 0.0 Prothrombin Time 15.7 #H Prothrombin Time Ratio 1.2 INR International Normalized Ratio 1.24 Activated Partial Thromboplast Time 31.8 Sodium Level 145 H Potassium Level 3.3 L Chloride Level 111 H Carbon Dioxide Level 23 Anion Gap 14 Blood Urea Nitrogen 34 H Creatinine 1.52 H Glucose Level 101 # Hemoglobin A1c 6.6 H Calcium Level 9.0 Magnesium Level 2.0 Total Bilirubin 0.4 Direct Bilirubin 0.00 Indirect Bilirubin 0.4 Aspartate Amino Transf (AST/SGOT) 16 Alanine Aminotransferase (ALT/SGPT) 38 Alkaline Phosphatase 50 Creatine Kinase 102 Creatine Kinase Index 1.7 Creatinine Kinase MB (Mass) 1.74 Troponin I 0.038 Total Protein 6.2 Albumin 3.4 Globulin 2.80 Albumin/Globulin Ratio 1.21 Bedside Glucose 81 Medications Medications Current Medications Insulin Glargine (Lantus) 20 unit QHS SC Last administered on 01/03/17 20:59; Admin Dose 20 UNIT; Start 01/03/17 at 21:00 Ranitidine HCl (Zantac) 150 mg HS PO Last administered on 01/03/17 20:53; Admin Dose 150 MG; Start 01/03/17 at 21:00 Tamsulosin HCl (Flomax) 0.4 mg DAILY PO ; Start 01/04/17 at 09:00 Salmeterol Xinafoate/ Fluticasone (Advair 250/50 Diskus) 1 inh BID INH Last administered on 01/04/17 08:56; Admin Dose 1 INH; Start 01/03/17 at 21:00 Insulin Aspart (Novolog Insulin Pen) NOVOLOG *MODERATE* ALGORI... Q4 SC Last administered on 01/03/17 21:04; Admin Dose 4 UNIT; Start 01/03/17 at 17:00 Miscellaneous Information 1 ea NOTE XX ; Start 01/03/17 at 16:00 Glucose (Glutose) 15 gm Q15M PRN PO DECREASED GLUCOSE; Start 01/03/17 at 16:00 Glucose (Glutose) 22.5 gm Q15M PRN PO DECREASED GLUCOSE; Start 01/03/17 at 16: 00 Dextrose (D50w Syringe) 25 ml Q15M PRN IV DECREASED GLUCOSE Last administered on 01/04/17 05:16; Admin Dose 25 ML; Start 01/03/17 at 16:00 Dextrose (D50w Syringe) 50 ml Q15M PRN IV DECREASED GLUCOSE; Start 01/03/17 at 16:00 Glucagon (Glucagen) 1 mg Q15M PRN IM DECREASED GLUCOSE; Start 01/03/17 at 16:00 Glucose (Glutose) 15 gm Q15M PRN BUCCAL DECREASED GLUCOSE; Start 01/03/17 at 16 :00 Ondansetron HCl (Zofran Inj) 4 mg Q6H PRN IV NAUSEA AND/OR VOMITING; Start at 16:00 Acetaminophen (Tylenol Tab) 650 mg Q6H PRN PO PAIN LEVEL 1-3 OR FEVER; Start at 16:00 Morphine Sulfate (morphine) 2 mg Q4H PRN IV PAIN LEVEL 7-10; Start 01/03/17 at 16:00 Carvedilol (Coreg) 25 mg BID PO Last administered on 01/03/17 20:53; Admin Dose 25 MG; Start 01/03/17 at 21:00 Nifedipine (Procardia Xl) 30 mg DAILY PO Last administered on 01/03/17 21:18; Admin Dose 30 MG; Start 01/03/17 at 18:00 Diphenhydramine HCl (Benadryl) 25 mg Q6H PRN IV ITCHING; Start 01/03/17 at 18: 00 Pantoprazole (Protonix Iv) 40 mg BID@06,18 IV ; Start 01/04/17 at 18:00 AMAYA KENNEDY January 04, 2017 12:55
[2017-01-04] MEDS ORDERED: INSULIN ASPART [NOVOLOG] 3 ML PEN SC SCH (17:25)
[2017-01-04] MEDS: Insulin NOVOLOG SS MODERATE Algorithm (SS with meals and bedtime) SC SCH ×2 (17:47→20:49)
[2017-01-04 19:47] LABS: HEMATOCRIT 29.9 % (42.0-52.0); HEMOGLOBIN 9.7 g/dl (14.0-18.0)
[2017-01-04] MEDS: RANITIDINE 150 MG TAB PO SCH (20:41)
[2017-01-04] MEDS: INSULIN GLARGINE [LANtus] 3 ML PEN SC SCH (21:00)
[2017-01-05] VITALS (11 sets, daily range): BP systolic 115–152; BP diastolic 58–69; PULSE 61–68; RESP 16–20
[2017-01-05 01:30] LABS: HEMOGLOBIN 9.7 g/dl (14.0-18.0)
[2017-01-05] MEDS: ACCUCHECK AT 2AM (Patients on SS coverage) XX SCH (02:00)
[2017-01-05] MEDS: PANTOPRAZOLE 40 MG INJ IV SCH ×2 (05:16→17:19)
--- NOTE | 2017-01-05 05:35 | GILP ---
DATE OF PROCEDURE: 01/04/2017 PROCEDURE: Esophagogastroduodenoscopy with endoclip placement and epinephrine submucosal injection. PREMEDICATION: Monitored anesthesia care by anesthesiologist. BRIEF HISTORY AND INDICATIONS: The patient with severe anemia and evidence suggestive of upper GI b leeding. SURGEON: Andres Alvarado MD. TECHNIQUE: After informed consent, with the patient/relatives understanding the procedure, its indic ations, potential risks and complications, including but not limited to: allergic reaction, bleeding , perforation or infection, and after all pertinent questions were answered to the patient's satisfa ction, the patient/relatives signed witnessed informed consent. Following this, premedication was a dministered slowly IV push under careful cardiovascular and respiratory monitoring with pulse oximet ry, automatic blood pressure and front desk monitor. Once the sedative effect was achieved the patient was place in the left lateral decubitus, the panen doscope was introduced and advanced under visual control. Careful examination of the upper gastrointestinal tract, both on insertion as well as withdrawal of the instrument disclosed the following findings: ESOPHAGUS: The mucosa of the entire esophagus appears within normal limits. There is no evidence of esophagitis, varices, neoplasm or stricture. No hiatal hernia identified. PYLORUS: The pylorus appears patent and within normal limits, with no evidence of gastric outlet obs truction. STOMACH: Upon entrance to the stomach air was insufflated. A moderate amount of relatively old blo od was noted in the fundus of the stomach that was suctioned out almost completely. The stomach was then carefully examined and lavaged extensively. It became evident that an area was noted in the a ntrum of the stomach. There were no ulcerations present. Therefore, this appears to represent a Di eulafoy lesion. DUODENUM: The duodenum was very carefully examined. No bleeding site or potential bleeding sites i dentified. At this point, the instrument was brought back into the antrum. An endoclip was placed in the area of bleeding and secured hemostasis. Epinephrine 1:10,000 was injected submucosally. No residual bleeding was noted at the end of the procedure. The instrument was then withdrawn, the patient tolerated the procedure well and was transfer out of the endoscopy suite awake, and in good condition to continue recovery under observation. 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 PLAN: The patient will be closely monitored. Further recommendation will depend on his clinical co urse. PPI double dose will be instituted and further recommendations will depend on the patient's c linical course. Dictated By: ANDRES ALVARADO MS/BRENDAN Conf#: [id number] DID#: [id number] CC: ____ ____; ANDRES ALVARADO;*EndCC*
[2017-01-05 06:08] LABS: ADD SCAN DIFF NO
[2017-01-05 06:33] LABS: INR 1.11; PROTIME 14.3 Sec (12.2-14.2); PT RATIO 1.1
[2017-01-05 06:34] LABS: PARTIAL THROMBOPLASTIN TIME 31.1 Sec (25.0-35.0)
[2017-01-05 06:38] LABS: BASOPHILS % 0.4 % (0.0-2.0); EOSINOPHILS # 0.1 10^3/ul (0.0-0.5); EOSINOPHILS % 1.2 % (0.0-7.0); HEMOGLOBIN 9.8 g/dl (14.0-18.0); LYMPHOCYTES # 1.3 10^3/ul (0.8-2.9); LYMPHOCYTES % 17.8 % (15.0-51.0); MEAN CORPUSCULAR HEMOGLOBIN 28.3 pg (29.0-33.0); MEAN CORPUSCULAR HGB CONC 32.7 g/dl (32.0-37.0); MEAN CORPUSCULAR VOLUME 86.7 fl (82.0-101.0); MEAN PLATELET VOLUME 9.8 fl (7.4-10.4); MONOCYTE # 0.7 10^3/ul (0.3-0.9); MONOCYTES % 9.6 % (0.0-11.0); NEUTROPHIL # 5.3 10^3/ul (1.6-7.5); NEUTROPHILS % 70.6 % (39.0-77.0); RED BLOOD COUNT 3.46 10^6/ul (4.70-6.10); RED CELL DISTRIBUTION WIDTH 15.9 % (11.5-14.5); WHITE BLOOD COUNT 7.5 10^3/ul (4.8-10.8)
[2017-01-05 06:40] LABS: ALBUMIN 3.2 g/dl (3.3-4.9)
[2017-01-05 06:41] LABS: POTASSIUM 3.5 mmol/L (3.5-5.1)
[2017-01-05 06:42] LABS: PHOSPHORUS 3.3 mg/dl (2.5-4.9)
[2017-01-05 06:43] LABS: ALBUMIN/GLOBULIN RATIO 1.1; BILIRUBIN,INDIRECT 0.5 mg/dl (0-1.1); BILIRUBIN,TOTAL 0.5 mg/dl (0.2-1.3); CREATININE 1.28 mg/dl (0.61-1.24); TOTAL PROTEIN 6.1 g/dl (6.1-8.1)
[2017-01-05 06:44] LABS: CALCIUM 8.8 mg/dl (8.4-10.2)
[2017-01-05 07:06] LABS: CHOL/HDL RATIO 3.1 RATIO
[2017-01-05] MEDS: Insulin NOVOLOG SS MODERATE Algorithm (SS with meals and bedtime) SC SCH ×4 (07:55→20:54)
[2017-01-05] MEDS: SALMETEROL/FLUTICASONE 250/50 INHA INH SCH ×2 (08:27→20:53)
[2017-01-05] MEDS: NIFEdipine (XL) 30 MG TAB PO SCH (08:29)
[2017-01-05] MEDS: TAMSULOSIN (SR) 0.4 MG CAP PO SCH (08:29)
[2017-01-05 09:29] LABS: HEMATOCRIT 31.7 % (42.0-52.0); HEMOGLOBIN 10.4 g/dl (14.0-18.0)
[2017-01-05] MEDS ORDERED: POTASSIUM CHLORIDE (SR) 10 MEQ TAB PO ONE (09:30)
--- NOTE | 2017-01-05 10:04 | RADRPT ---
Echocardiogram Report Patient Name: JACQUI KAYE Gender: Male Date: 1935 Study Date: 04-Jan-2017 Section Plotter Operator: KEYA Location: [facility] Ref. Physician: REESE KENNEDY Quality: Technically Difficult Study Procedures: Transthoracic echocardiogram with 2D, M-Mode, and Doppler examination. Indications: Evaluate Left Ventricular function. 2D/M Mode Doppler Measurement Value Normal Ranges Measurement Value Normal Ranges AoR Diam MM 2.8 cm AV Peak Issac 1.2 m/sec LVIDd 2D 5.7 3.5 - 5.6 cm AV Peak PG 5.6 mmHg LVIDs 2D 4.0 2.1 - 4.1 cm LVOT Peak Issac 0.8 m/sec LVPWd 2D 1.3 0.6 - 1.1 cm LVOT Peak PG 2.4 mmHg IVSd 2D 1.4 0.6 - 1.1 cm MV E Peak Issac 0.8 m/sec EDV 2D 159.0 cm3 MV A Peak Issac 0.4 m/sec ESV 2D 63.0 cm3 MV E/A 2.3 LA Dimen 2D 4.6 2.3 - 4.0 cm MV Decel Time 165 msec MV Decel [place] 5 MV E/A 2.3 Findings Left Ventricle: Mild concentric left ventricular hypertrophy. Mild enlargement of left ventricle cavity. Mild left ventricular systolic dysfunction. Ejection fraction is visually estimated at 45 %. Tissue Doppler/Mitral Doppler indices are consistent with restrictive physiology with markedly elevated left atrial pressure (Stage III-IV diastolic dysfunction), poor Valsalva. E/E`=10. Multiple segmental wall motion abnormalities. Right Ventricle: Normal right ventricular size. Normal right ventricular systolic function. Linear artifact in right ventricle suggestive of catheter, pacer lead, or ICD lead. Left Atrium: The left atrium is normal in size. There is mild enlargement of left atrium. Right Atrium: The right atrium is normal in size. Atrial Septum: Normal atrial septum. Mitral Valve: Mild mitral annular calcification. Trace to mild mitral valve regurgitation. Aortic Valve: Normal appearance of the aortic valve. No significant aortic stenosis or insufficiency. Tricuspid Valve: Normal appearance of the tricuspid valve. No evidence of tricuspid regurgitation. Pulmonic Valve: Pulmonic valve not well visualized, however no obvious regurgitation noted. Pericardium: Normal pericardium with no significant pericardial effusion. Aorta: Normal aortic root. IVC: Normal size and normal respiratory collapse consistent with normal right atrial pressure. Pulmonary Artery: Not well visualized. Conclusions 1.Mild concentric left ventricular hypertrophy. Mild enlargement of left ventricle cavity. Mild left ventricular systolic dysfunction. Ejection fraction is visually estimated at 45 %. Tissue Doppler/Mitral Doppler indices are consistent with restrictive physiology with markedly elevated left atrial pressure (Stage III-IV diastolic dysfunction), poor Valsalva. E/E`=10. Multiple segmental wall motion abnormalities. 2.Normal pericardium with no significant pericardial effusion. 3.Pulmonic valve not well visualized, however no obvious regurgitation noted. 4.Normal appearance of the tricuspid valve. No evidence of tricuspid regurgitation. 5.Normal appearance of the aortic valve. No significant aortic stenosis or insufficiency. 6.Mild mitral annular calcification. Trace to mild mitral valve regurgitation. Electronically Signed By: Junito Collins 05-Jan-2017 10:03:44 -0700 Patient Name: JACQUI KAYE Study Date: 04-Jan-2017 [id number]
[2017-01-05 10:29] LABS: PLATELET COUNT 240 10^3/UL (140-415)
--- NOTE | 2017-01-05 10:54 | PN ---
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 * Hemoglobin 10.4 Exam/Review of Systems Vital Signs Vitals Vital Signs Date Time Temp Pulse Resp B/P Pulse Ox O2 Delivery O2 Flow Rate FiO2 01/05/17 08:03 68 01/05/17 06:54 98.0 20 152/69 97 01/04/17 12:25 Room Air Intake and Output 01/04/17 01/04/17 01/05/17 15:00 23:00 07:00 Intake Total 200 ml 700 ml Balance 200 ml 700 ml Exam Constitutional: alert, frail Head: atraumatic, normocephalic Neck: non-tender, supple Respiratory: clear to auscultation, normal air movement Cardiovascular: nl pulses, regular rate and rhythm Gastrointestinal: non-tender, soft Musculoskeletal: nl extremities to inspection Results Result Diagram: 01/05/17 0908 01/05/17 0537 Results 24 hrs Laboratory Tests Test 01/04/17 13:51 01/04/17 17:26 01/04/17 19:20 01/04/17 20:48 Bedside Glucose 204 92 91 Hemoglobin 9.7 #L Hematocrit 29.9 #L Test 01/05/17 00:53 01/05/17 05:00 01/05/17 05:37 01/05/17 08:25 Hemoglobin 9.7 L 9.8 L Hematocrit 29.0 L 30.0 L Triglycerides Level 120 Cholesterol Level 118 LDL Cholesterol, Calculated 56 HDL Cholesterol 38 Cholesterol/HDL Ratio 3.1 White Blood Count 7.5 Red Blood Count 3.46 #L Mean Corpuscular Volume 86.7 Mean Corpuscular Hemoglobin 28.3 L Mean Corpuscular Hemoglobin Concent 32.7 Red Cell Distribution Width 15.9 H Platelet Count 240 Mean Platelet Volume 9.8 Neutrophils % 70.6 Lymphocytes % 17.8 Monocytes % 9.6 Eosinophils % 1.2 Basophils % 0.4 Nucleated Red Blood Cells % 0.0 Neutrophils # 5.3 Lymphocytes # 1.3 Monocytes # 0.7 Eosinophils # 0.1 Basophils # 0.0 Nucleated Red Blood Cells # 0.0 Prothrombin Time 14.3 H Prothrombin Time Ratio 1.1 INR International Normalized Ratio 1.11 Activated Partial Thromboplast Time 31.1 Sodium Level 144 Potassium Level 3.5 Chloride Level 118 H Carbon Dioxide Level 24 Anion Gap 6 #L Blood Urea Nitrogen 22 #H Creatinine 1.28 H Glucose Level 72 Calcium Level 8.8 Phosphorus Level 3.3 Magnesium Level 2.0 Total Bilirubin 0.5 Direct Bilirubin 0.00 Indirect Bilirubin 0.5 Aspartate Amino Transf (AST/SGOT) 18 Alanine Aminotransferase (ALT/SGPT) 35 Alkaline Phosphatase 56 Total Protein 6.1 Albumin 3.2 L Globulin 2.90 Albumin/Globulin Ratio 1.10 Bedside Glucose 77 Test 01/05/17 09:08 Hemoglobin 10.4 L Hematocrit 31.7 L Medications Medications Current Medications Ranitidine HCl (Zantac) 150 mg HS PO Last administered on 01/04/17 20:41; Admin Dose 150 MG; Start 01/03/17 at 21:00 Tamsulosin HCl (Flomax) 0.4 mg DAILY PO Last administered on 01/05/17 08:29; Admin Dose 0.4 MG; Start 01/04/17 at 09:00 Salmeterol Xinafoate/ Fluticasone (Advair 250/50 Diskus) 1 inh BID INH Last administered on 01/05/17 08:27; Admin Dose 1 INH; Start 01/03/17 at 21:00 Miscellaneous Information 1 ea NOTE XX ; Start 01/03/17 at 16:00 Glucose (Glutose) 15 gm Q15M PRN PO DECREASED GLUCOSE; Start 01/03/17 at 16:00 Glucose (Glutose) 22.5 gm Q15M PRN PO DECREASED GLUCOSE; Start 01/03/17 at 16: 00 Dextrose (D50w Syringe) 25 ml Q15M PRN IV DECREASED GLUCOSE Last administered on 01/04/17 05:16; Admin Dose 25 ML; Start 01/03/17 at 16:00 Dextrose (D50w Syringe) 50 ml Q15M PRN IV DECREASED GLUCOSE; Start 01/03/17 at 16:00 Glucagon (Glucagen) 1 mg Q15M PRN IM DECREASED GLUCOSE; Start 01/03/17 at 16:00 Glucose (Glutose) 15 gm Q15M PRN BUCCAL DECREASED GLUCOSE; Start 01/03/17 at 16 :00 Ondansetron HCl (Zofran Inj) 4 mg Q6H PRN IV NAUSEA AND/OR VOMITING; Start at 16:00 Acetaminophen (Tylenol Tab) 650 mg Q6H PRN PO PAIN LEVEL 1-3 OR FEVER; Start at 16:00 Morphine Sulfate (morphine) 2 mg Q4H PRN IV PAIN LEVEL 7-10; Start 01/03/17 at 16:00 Carvedilol (Coreg) 25 mg BID PO Last administered on 01/05/17 08:29; Admin Dose 25 MG; Start 01/03/17 at 21:00 Nifedipine (Procardia Xl) 30 mg DAILY PO Last administered on 01/05/17 08:29; Admin Dose 30 MG; Start 01/03/17 at 18:00 Diphenhydramine HCl (Benadryl) 25 mg Q6H PRN IV ITCHING; Start 01/03/17 at 18: 00 Pantoprazole (Protonix Iv) 40 mg BID@06,18 IV Last administered on 01/05/17 05 :16; Admin Dose 40 MG; Start 01/04/17 at 18:00 Diagnostic Test (Pha) (Accu-Chek) 1 ea 02 XX ; Start 01/05/17 at 02:00 Insulin Glargine (Lantus) 15 unit QHS SC ; Start 01/05/17 at 21:00 ANDRES GREEN MD January 05, 2017 10:54
--- NOTE | 2017-01-05 11:03 | PN ---
Date/Time of Note Date/Time of Note DATE: 01/05/17 TIME: 10:46 Assessment/Plan VTE Prophylaxis VTE Prophylaxis Intervention: SCD's Lines/Catheters IV Catheter Type (from Nrs): Saline Lock Assessment/Plan Assessment/Plan 81-year-old male with: 1. Severe symptomatic anemia secondary to upper gastrointestinal bleeding, s/p EGD with finding of actively bleeding Dieulafoy Ulcer s/p clipping. S/p total of 5 units pRBC Off Xarelto for now. Dr. Alvarado following, serial h/h stable On Clears and continue PPI. 2. Coronary artery disease, likely ischemic cardiomyopathy, status post coronary artery bypass surgery. Remains chest pain free and euvolemic. His cardiac enzymes are negative. Continue Carvedilol and Nifedipine. Will also resume Losartan today and Spironolactone at discharge S/p ICD in place and paced rhythm on monitor. CXR wnl Echocardiogram done and results pending. 3. Atrial fibrillation and has been on Xarelto, which had to be discontinued at this point given the life threatening gastrointestinal bleed and severe anemia. Need to decide if or when safe to go back on anticoag. 4. Diabetes mellitus. Continue Lantus and SSI. A1c 6.6 5. Hyperlipidemia. Resume statin therapy 6. Hypertension. Continue current medications and will add Losartan back on 7. Benign prostatic hypertrophy. Continue Flomax. 8. Chronic bronchitis versus chronic obstructive pulmonary disease, this is per patient report. Continue Symbicort and DuoNebs as needed for shortness of breath and wheezing. 9. YONIS vs CKD: monitor UOP and renal function 10. Morbid obesity. Prophylaxis: Sequential compression devices to lower extremity for deep venous thrombosis prophylaxis and the patient already on b.i.d. Protonix. DISPOSITION: Telemetry, serial h/h after total of 5 units pRBC, follow up further recs from GI. Subjective 24 Hr Interval Summary Free Text/Dictation Patient remains doing well today and h/h stable No further bleeding Monitoring h/h and d/c plan within 24 hrs if remains stable Exam/Review of Systems Vital Signs Vitals Vital Signs Date Time Temp Pulse Resp B/P Pulse Ox O2 Delivery O2 Flow Rate FiO2 01/05/17 08:03 68 01/05/17 06:54 98.0 20 152/69 97 01/04/17 12:25 Room Air Intake and Output 01/04/17 01/04/17 01/05/17 15:00 23:00 07:00 Intake Total 200 ml 700 ml Balance 200 ml 700 ml Exam Constitutional: alert, obese, oriented, well developed Respiratory: clear to auscultation, normal air movement Cardiovascular: nl pulses, regular rate and rhythm Gastrointestinal: non-tender, soft Musculoskeletal: nl extremities to inspection Extremities: normal pulses, other (no edema, clubbing or cyanosis ) Neurological: DOCK SUPERVISOR II-XII intact, nl mental status, nl speech, nl strength Results Result Diagram: 01/05/17 0908 01/05/17 0537 Results 24 hrs Laboratory Tests Test 01/04/17 13:51 01/04/17 17:26 01/04/17 19:20 01/04/17 20:48 Bedside Glucose 204 92 91 Hemoglobin 9.7 #L Hematocrit 29.9 #L Test 01/05/17 00:53 01/05/17 05:00 01/05/17 05:37 01/05/17 08:25 Hemoglobin 9.7 L 9.8 L Hematocrit 29.0 L 30.0 L Triglycerides Level 120 Cholesterol Level 118 LDL Cholesterol, Calculated 56 HDL Cholesterol 38 Cholesterol/HDL Ratio 3.1 White Blood Count 7.5 Red Blood Count 3.46 #L Mean Corpuscular Volume 86.7 Mean Corpuscular Hemoglobin 28.3 L Mean Corpuscular Hemoglobin Concent 32.7 Red Cell Distribution Width 15.9 H Platelet Count 240 Mean Platelet Volume 9.8 Neutrophils % 70.6 Lymphocytes % 17.8 Monocytes % 9.6 Eosinophils % 1.2 Basophils % 0.4 Nucleated Red Blood Cells % 0.0 Neutrophils # 5.3 Lymphocytes # 1.3 Monocytes # 0.7 Eosinophils # 0.1 Basophils # 0.0 Nucleated Red Blood Cells # 0.0 Prothrombin Time 14.3 H Prothrombin Time Ratio 1.1 INR International Normalized Ratio 1.11 Activated Partial Thromboplast Time 31.1 Sodium Level 144 Potassium Level 3.5 Chloride Level 118 H Carbon Dioxide Level 24 Anion Gap 6 #L Blood Urea Nitrogen 22 #H Creatinine 1.28 H Glucose Level 72 Calcium Level 8.8 Phosphorus Level 3.3 Magnesium Level 2.0 Total Bilirubin 0.5 Direct Bilirubin 0.00 Indirect Bilirubin 0.5 Aspartate Amino Transf (AST/SGOT) 18 Alanine Aminotransferase (ALT/SGPT) 35 Alkaline Phosphatase 56 Total Protein 6.1 Albumin 3.2 L Globulin 2.90 Albumin/Globulin Ratio 1.10 Bedside Glucose 77 Test 01/05/17 09:08 Hemoglobin 10.4 L Hematocrit 31.7 L Medications Medications Current Medications Ranitidine HCl (Zantac) 150 mg HS PO Last administered on 01/04/17 20:41; Admin Dose 150 MG; Start 01/03/17 at 21:00 Tamsulosin HCl (Flomax) 0.4 mg DAILY PO Last administered on 01/05/17 08:29; Admin Dose 0.4 MG; Start 01/04/17 at 09:00 Salmeterol Xinafoate/ Fluticasone (Advair 250/50 Diskus) 1 inh BID INH Last administered on 01/05/17 08:27; Admin Dose 1 INH; Start 01/03/17 at 21:00 Miscellaneous Information 1 ea NOTE XX ; Start 01/03/17 at 16:00 Glucose (Glutose) 15 gm Q15M PRN PO DECREASED GLUCOSE; Start 01/03/17 at 16:00 Glucose (Glutose) 22.5 gm Q15M PRN PO DECREASED GLUCOSE; Start 01/03/17 at 16: 00 Dextrose (D50w Syringe) 25 ml Q15M PRN IV DECREASED GLUCOSE Last administered on 01/04/17 05:16; Admin Dose 25 ML; Start 01/03/17 at 16:00 Dextrose (D50w Syringe) 50 ml Q15M PRN IV DECREASED GLUCOSE; Start 01/03/17 at 16:00 Glucagon (Glucagen) 1 mg Q15M PRN IM DECREASED GLUCOSE; Start 01/03/17 at 16:00 Glucose (Glutose) 15 gm Q15M PRN BUCCAL DECREASED GLUCOSE; Start 01/03/17 at 16 :00 Ondansetron HCl (Zofran Inj) 4 mg Q6H PRN IV NAUSEA AND/OR VOMITING; Start at 16:00 Acetaminophen (Tylenol Tab) 650 mg Q6H PRN PO PAIN LEVEL 1-3 OR FEVER; Start at 16:00 Morphine Sulfate (morphine) 2 mg Q4H PRN IV PAIN LEVEL 7-10; Start 01/03/17 at 16:00 Carvedilol (Coreg) 25 mg BID PO Last administered on 01/05/17 08:29; Admin Dose 25 MG; Start 01/03/17 at 21:00 Nifedipine (Procardia Xl) 30 mg DAILY PO Last administered on 01/05/17 08:29; Admin Dose 30 MG; Start 01/03/17 at 18:00 Diphenhydramine HCl (Benadryl) 25 mg Q6H PRN IV ITCHING; Start 01/03/17 at 18: 00 Pantoprazole (Protonix Iv) 40 mg BID@06,18 IV Last administered on 01/05/17 05 :16; Admin Dose 40 MG; Start 01/04/17 at 18:00 Diagnostic Test (Pha) (Accu-Chek) 1 ea 02 XX ; Start 01/05/17 at 02:00 Insulin Glargine (Lantus) 15 unit QHS SC ; Start 01/05/17 at 21:00 AMAYA KENNEDY January 05, 2017 10:56
[2017-01-05 12:25] LABS: HEMATOCRIT 29.7 % (42.0-52.0); HEMOGLOBIN 9.7 g/dl (14.0-18.0)
[2017-01-05 18:24] LABS: HEMATOCRIT 31.1 % (42.0-52.0)
[2017-01-05] MEDS: RANITIDINE 150 MG TAB PO SCH (20:53)
[2017-01-05] MEDS ORDERED: INSULIN GLARGINE [LANtus] 3 ML PEN SC SCH (21:00)
[2017-01-06] VITALS (9 sets, daily range): BP systolic 112–140; BP diastolic 56–63; PULSE 63–66; RESP 16–18
[2017-01-06 01:14] LABS: HEMATOCRIT 29.3 % (42.0-52.0); HEMOGLOBIN 9.4 g/dl (14.0-18.0)
[2017-01-06] MEDS: ACCUCHECK AT 2AM (Patients on SS coverage) XX SCH (01:17)
[2017-01-06] MEDS: PANTOPRAZOLE 40 MG INJ IV SCH (05:31)
[2017-01-06 06:51] LABS: HEMATOCRIT 29.2 % (42.0-52.0); HEMOGLOBIN 9.3 g/dl (14.0-18.0)
[2017-01-06 07:18] LABS: MAGNESIUM 2.1 mg/dl (1.7-2.5); PHOSPHORUS 3.4 mg/dl (2.5-4.9)
[2017-01-06 07:27] LABS: ALBUMIN 3.1 g/dl (3.3-4.9); ALBUMIN/GLOBULIN RATIO 1.14; BILIRUBIN,INDIRECT 0.5 mg/dl (0-1.1); BILIRUBIN,TOTAL 0.5 mg/dl (0.2-1.3); CALCIUM 8.8 mg/dl (8.4-10.2); CREATININE 1.3 mg/dl (0.61-1.24); POTASSIUM 3.6 mmol/L (3.5-5.1); TOTAL PROTEIN 5.8 g/dl (6.1-8.1)
[2017-01-06] MEDS: Insulin NOVOLOG SS MODERATE Algorithm (SS with meals and bedtime) SC SCH ×2 (07:55→11:27)
[2017-01-06] MEDS: NIFEdipine (XL) 30 MG TAB PO SCH (09:15)
[2017-01-06] MEDS: TAMSULOSIN (SR) 0.4 MG CAP PO SCH (09:15)
[2017-01-06] MEDS: SALMETEROL/FLUTICASONE 250/50 INHA INH SCH (09:15)
--- NOTE | 2017-01-06 12:04 | PN ---
Date/Time of Note Date/Time of Note DATE: 01/06/17 TIME: 11:57 Assessment/Plan VTE Prophylaxis VTE Prophylaxis Intervention: SCD's Lines/Catheters IV C[facility]ter Type (from [facility] Saline Lock Urinary Cath still in place: No Assessment/Plan Assessment/Plan 81-year-old male with: 1. Severe symptomatic anemia secondary to upper gastrointestinal bleeding, s/p EGD with finding of actively bleeding Dieulafoy Ulcer s/p clipping. S/p total of 5 units pRBC Discuss with Dr Alvarado, lesion has been treated and patient can go back on Xarelto and just watch out for nay bleeding. Serial h/h stable so far Continue PPI outpatient 2. Coronary artery disease, likely ischemic cardiomyopathy, status post coronary artery bypass surgery. Remains chest pain free and euvolemic. His cardiac enzymes are negative. Continue Carvedilol and Nifedipine. Will also resume Losartan today and Spironolactone at discharge S/p ICD in place and paced rhythm on monitor. CXR wnl Echocardiogram with EF 45 %. 3. Atrial fibrillation and has been on Xarelto, Controlled and OK to go back on Xarelto per GI . 4. Diabetes mellitus. Continue Lantus and SSI. A1c 6.6 5. Hyperlipidemia. Resume statin therapy 6. Hypertension. Continue current medications and will add Losartan back on 7. Benign prostatic hypertrophy. Continue Flomax. 8. Chronic bronchitis versus chronic obstructive pulmonary disease, this is per patient report. Continue Symbicort and DuoNebs as needed for shortness of breath and wheezing. 9. Likely CKD: stable renal function 10. Morbid obesity. Prophylaxis: Sequential compression devices to lower extremity for deep venous thrombosis prophylaxis and the patient already on b.i.d. Protonix. DISPOSITION: Telemetry, d/c home today with PCP and Cardiology follow up. AIso f/u with GI as needed. Subjective 24 Hr Interval Summary Free Text/Dictation Patient doing well Tolerating po and no further bleeding noted. H/H stable Ok to resume Xarelto per GI and d/c home today with PCP and Cardiology follow up Exam/Review of Systems Vital Signs Vitals Vital Signs Date Time Temp Pulse Resp B/P Pulse Ox O2 Delivery O2 Flow Rate FiO2 01/06/17 11:16 98.1 63 18 112/56 99 01/04/17 12:25 Room Air Intake and Output 01/05/17 01/05/17 01/06/17 15:00 23:00 07:00 Intake Total 1800 ml 940 ml Balance 1800 ml 940 ml Exam Constitutional: alert, obese, oriented, well developed Respiratory: clear to auscultation, normal air movement Cardiovascular: nl pulses, other (pacer/ICD in place ), regular rate and rhythm Gastrointestinal: non-tender, soft Musculoskeletal: nl extremities to inspection Extremities: normal pulses, other (no edema, clubbing or cyanosis ) Neurological: TREASURY ASSISTANT II-XII intact, nl mental status, nl speech, nl strength Results Result Diagram: 01/06/17 0600 01/06/17 0600 Results 24 hrs Laboratory Tests Test 01/05/17 12:07 01/05/17 12:19 01/05/17 17:16 01/05/17 18:10 Hemoglobin 9.7 L 10.0 L Hematocrit 29.7 L 31.1 L Bedside Glucose 123 153 Test 01/05/17 20:48 01/06/17 00:35 01/06/17 06:00 01/06/17 07:50 Bedside Glucose 142 80 Hemoglobin 9.4 L 9.3 L Hematocrit 29.3 L 29.2 L Sodium Level 145 H Potassium Level 3.6 Chloride Level 111 H Carbon Dioxide Level 24 Anion Gap 14 # Blood Urea Nitrogen 18 Creatinine 1.30 H Glucose Level 74 Calcium Level 8.8 Phosphorus Level 3.4 Magnesium Level 2.1 Total Bilirubin 0.5 Direct Bilirubin 0.00 Indirect Bilirubin 0.5 Aspartate Amino Transf (AST/SGOT) 14 L Alanine Aminotransferase (ALT/SGPT) 32 Alkaline Phosphatase 53 Total Protein 5.8 L Albumin 3.1 L Globulin 2.70 Albumin/Globulin Ratio 1.14 Test 01/06/17 11:27 Bedside Glucose 126 Medications Medications Current Medications Ranitidine HCl (Zantac) 150 mg HS PO Last administered on 01/05/17 20:53; Admin Dose 150 MG; Start 01/03/17 at 21:00 Tamsulosin HCl (Flomax) 0.4 mg DAILY PO Last administered on 01/06/17 09:15; Admin Dose 0.4 MG; Start 01/04/17 at 09:00 Salmeterol Xinafoate/ Fluticasone (Advair 250/50 Diskus) 1 inh BID INH Last administered on 01/06/17 09:15; Admin Dose 1 INH; Start 01/03/17 at 21:00 Miscellaneous Information 1 ea NOTE XX ; Start 01/03/17 at 16:00 Glucose (Glutose) 15 gm Q15M PRN PO DECREASED GLUCOSE; Start 01/03/17 at 16:00 Glucose (Glutose) 22.5 gm Q15M PRN PO DECREASED GLUCOSE; Start 01/03/17 at 16: 00 Dextrose (D50w Syringe) 25 ml Q15M PRN IV DECREASED GLUCOSE Last administered on 01/04/17 05:16; Admin Dose 25 ML; Start 01/03/17 at 16:00 Dextrose (D50w Syringe) 50 ml Q15M PRN IV DECREASED GLUCOSE; Start 01/03/17 at 16:00 Glucagon (Glucagen) 1 mg Q15M PRN IM DECREASED GLUCOSE; Start 01/03/17 at 16:00 Glucose (Glutose) 15 gm Q15M PRN BUCCAL DECREASED GLUCOSE; Start 01/03/17 at 16 :00 Ondansetron HCl (Zofran Inj) 4 mg Q6H PRN IV NAUSEA AND/OR VOMITING; Start at 16:00 Acetaminophen (Tylenol Tab) 650 mg Q6H PRN PO PAIN LEVEL 1-3 OR FEVER; Start at 16:00 Morphine Sulfate (morphine) 2 mg Q4H PRN IV PAIN LEVEL 7-10; Start 01/03/17 at 16:00 Carvedilol (Coreg) 25 mg BID PO Last administered on 01/06/17 09:16; Admin Dose 25 MG; Start 01/03/17 at 21:00 Nifedipine (Procardia Xl) 30 mg DAILY PO Last administered on 01/06/17 09:15; Admin Dose 30 MG; Start 01/03/17 at 18:00 Diphenhydramine HCl (Benadryl) 25 mg Q6H PRN IV ITCHING; Start 01/03/17 at 18: 00 Pantoprazole (Protonix Iv) 40 mg BID@06,18 IV Last administered on 01/06/17 05 :31; Admin Dose 40 MG; Start 01/04/17 at 18:00 Diagnostic Test (Pha) (Accu-Chek) 1 ea 02 XX ; Start 01/05/17 at 02:00 Insulin Glargine (Lantus) 15 unit QHS SC Last administered on 01/05/17t 20:56; Admin Dose 15 UNIT; Start 01/05/17 at 21:00 AMAYA KENNEDY January 06, 2017 12:04
--- NOTE | 2017-01-06 12:06 | PDOCDIS ---
Discharge Instructions CONDITION Patient Condition: Stable HOME CARE INSTRUCTIONS: Special Diet: soft diet, ADA diet ACTIVITY: Activity Restrictions: Slowly Increase Activity FOLLOW UP/APPOINTMENTS Appointments Follow up with PCP and Cardiology within 1 week Ok to resume Xarelto at discharge per AMAYA Zuniga January 06, 2017 12:06
[2017-01-06] MEDS ORDERED: PANT40TA3 PO (12:20)
--- NOTE | 2017-01-06 13:16 | PN ---
Date/Time of Note Date/Time of Note DATE: 01/06/17 TIME: 13:14 Assessment/Plan VTE Prophylaxis VTE Prophylaxis Intervention: SCD's Lines/Catheters IV [facility] Saline Lock Urinary Cath still in place: No Assessment/Plan Assessment/Plan * Anemia EGD Dieulafoy ulcer * CAD * DM * Hypertension Plan * continue present management * advanced diet as tolerated * Stable for outpatient management Subjective 24 Hr Interval Summary Free Text/Dictation * Course reviewed with RN * Patient seen and examined * No active bleeding Exam/Review of Systems Vital Signs Vitals Vital Signs Date Time Temp Pulse Resp B/P Pulse Ox O2 Delivery O2 Flow Rate FiO2 01/06/17 12:17 64 01/06/17 11:16 98.1 18 112/56 99 01/04/17 12:25 Room Air Intake and Output 01/05/17 01/05/17 01/06/17 15:00 23:00 07:00 Intake Total 1800 ml 940 ml Balance 1800 ml 940 ml Exam Constitutional: alert Neck: non-tender, supple Respiratory: clear to auscultation, normal air movement Cardiovascular: nl pulses, regular rate and rhythm Gastrointestinal: non-tender, soft Musculoskeletal: nl extremities to inspection, nl gait and stance Extremities: normal pulses Neurological: nl speech, nl strength Results Result Diagram: 01/06/17 0600 01/06/17 0600 Results 24 hrs Laboratory Tests Test 01/05/17 17:16 01/05/17 18:10 01/05/17 20:48 01/06/17 00:35 Bedside Glucose 153 142 Hemoglobin 10.0 L 9.4 L Hematocrit 31.1 L 29.3 L Test 01/06/17 06:00 01/06/17 07:50 01/06/17 11:27 Hemoglobin 9.3 L Hematocrit 29.2 L Sodium Level 145 H Potassium Level 3.6 Chloride Level 111 H Carbon Dioxide Level 24 Anion Gap 14 # Blood Urea Nitrogen 18 Creatinine 1.30 H Glucose Level 74 Calcium Level 8.8 Phosphorus Level 3.4 Magnesium Level 2.1 Total Bilirubin 0.5 Direct Bilirubin 0.00 Indirect Bilirubin 0.5 Aspartate Amino Transf (AST/SGOT) 14 L Alanine Aminotransferase (ALT/SGPT) 32 Alkaline Phosphatase 53 Total Protein 5.8 L Albumin 3.1 L Globulin 2.70 Albumin/Globulin Ratio 1.14 Bedside Glucose 80 126 Medications Medications Current Medications Ranitidine HCl (Zantac) 150 mg HS PO Last administered on 01/05/17 20:53; Admin Dose 150 MG; Start 01/03/17 at 21:00 Tamsulosin HCl (Flomax) 0.4 mg DAILY PO Last administered on 01/06/17 09:15; Admin Dose 0.4 MG; Start 01/04/17 at 09:00 Salmeterol Xinafoate/ Fluticasone (Advair 250/50 Diskus) 1 inh BID INH Last administered on 01/06/17 09:15; Admin Dose 1 INH; Start 01/03/17 at 21:00 Miscellaneous Information 1 ea NOTE XX ; Start 01/03/17 at 16:00 Glucose (Glutose) 15 gm Q15M PRN PO DECREASED GLUCOSE; Start 01/03/17 at 16:00 Glucose (Glutose) 22.5 gm Q15M PRN PO DECREASED GLUCOSE; Start 01/03/17 at 16: 00 Dextrose (D50w Syringe) 25 ml Q15M PRN IV DECREASED GLUCOSE Last administered on 01/04/17 05:16; Admin Dose 25 ML; Start 01/03/17 at 16:00 Dextrose (D50w Syringe) 50 ml Q15M PRN IV DECREASED GLUCOSE; Start 01/03/17 at 16:00 Glucagon (Glucagen) 1 mg Q15M PRN IM DECREASED GLUCOSE; Start 01/03/17 at 16:00 Glucose (Glutose) 15 gm Q15M PRN BUCCAL DECREASED GLUCOSE; Start 01/03/17 at 16 :00 Ondansetron HCl (Zofran Inj) 4 mg Q6H PRN IV NAUSEA AND/OR VOMITING; Start at 16:00 Acetaminophen (Tylenol Tab) 650 mg Q6H PRN PO PAIN LEVEL 1-3 OR FEVER; Start at 16:00 Morphine Sulfate (morphine) 2 mg Q4H PRN IV PAIN LEVEL 7-10; Start 01/03/17 at 16:00 Carvedilol (Coreg) 25 mg BID PO Last administered on 01/06/17 09:16; Admin Dose 25 MG; Start 01/03/17 at 21:00 Nifedipine (Procardia Xl) 30 mg DAILY PO Last administered on 01/06/17 09:15; Admin Dose 30 MG; Start 01/03/17 at 18:00 Diphenhydramine HCl (Benadryl) 25 mg Q6H PRN IV ITCHING; Start 01/03/17 at 18: 00 Pantoprazole (Protonix Iv) 40 mg BID@06,18 IV Last administered on 01/06/17 05 :31; Admin Dose 40 MG; Start 01/04/17 at 18:00 Diagnostic Test (Pha) (Accu-Chek) 1 ea 02 XX ; Start 01/05/17 at 02:00 Insulin Glargine (Lantus) 15 unit QHS SC Last administered on 01/05/17 20:56; Admin Dose 15 UNIT; Start 01/05/17 at 21:00 ANDRES GREEN MD January 06, 2017 13:16
[2017-01-06] MEDS ORDERED: RIVAROXABAN 20 MG TABLET PO SCH (17:55)
[2017-01-06] MEDS ORDERED: PANTOPRAZOLE (EC) 40 MG TAB PO SCH (18:00)
== END 2017-01-06 16:55 | disposition home or self-care (01) | DRG 811 ==
LOC: E/R 12:42 → TEL 14:41
PROVIDERS: ADMIT Internal Medicine; ATTEND Internal Medicine
PROC: 30233N1 Transfusion of Nonautologous Red Blood Cells into Peripheral Vein, Percutaneous Approach (ICD-10-PCS; 2017-01-03)
PROC: 0W3P8ZZ Control Bleeding in Gastrointestinal Tract, Via Natural or Artificial Opening Endoscopic (ICD-10-PCS; principal; 2017-01-04 11:00)
PROC: 30233K1 Transfusion of Nonautologous Frozen Plasma into Peripheral Vein, Percutaneous Approach (ICD-10-PCS; 2017-01-04 11:00)
DX: D50.0 Iron deficiency anemia secondary to blood loss (chronic) (principal); K31.82 Dieulafoy lesion (hemorrhagic) of stomach and duodenum; I11.0 Hypertensive heart disease with heart failure; I50.9 Heart failure, unspecified; E66.01 Morbid (severe) obesity due to excess calories; I48.91 Unspecified atrial fibrillation; J45.909 Unspecified asthma, uncomplicated; E78.5 Hyperlipidemia, unspecified; E11.9 Type 2 diabetes mellitus without complications; I25.10 Atherosclerotic heart disease of native coronary artery without angina pectoris; Z68.30 Body mass index [BMI] 30.0-30.9, adult; N40.0 Benign prostatic hyperplasia without lower urinary tract symptoms; I25.5 Ischemic cardiomyopathy; Z95.1 Presence of aortocoronary bypass graft; Z95.810 Presence of automatic (implantable) cardiac defibrillator; Z87.891 Personal history of nicotine dependence; Z79.01 Long term (current) use of anticoagulants; Z79.4 Long term (current) use of insulin
CPT/HCPCS: 36415; 36430; 71010; 80053; 80061; 81001; 82550; 82553; 82607; 82728; 82746; 82962; 83036; 83540; 83735; 83880; 84100; 84439; 84443; 84484; 85014; 85018; 85025; 85610; 85730; 86850; 86900; 86901; 86920; 93005; 93306; 96374; 96375; J1940; C9113; J0171; J1815; J2370; J2405; J3010; J3480; J7030; P9016; P9059

== ENCOUNTER 2018-01-05 14:37 | Emergency (ER) | END 2018-01-05 21:56 | disposition home or self-care (01) ==

== ENCOUNTER 2018-01-20 17:34 | Inpatient (IN) | END 2018-01-23 16:35 | disposition home health service (06) | DRG 256 ==

== ENCOUNTER 2018-03-05 15:25 | Inpatient (IN) | END 2018-03-12 16:30 | disposition home health service (06) | DRG 857 ==

== ENCOUNTER → 2018-09-21 | Outpatient (CLI) | payer MEDICARE, OTHER ==
[~2018-09-21] MED LIST: ALDS PO; ATOR-2 PO; BUDE6HFA INHALATION; CANA300T PO; CARV25TA79 PO; FER325 PO; FURO20TA3 PO; GLIM4TAB PO; INSU100I31 SQ; LEVO500T48 PO; LOSA50TA14 PO; NIFE30TA23 PO; PANT40TA4 PO; RANI150T5 PO; RIVA20TA5 PO; SITA100T11 PO; TAMS0.4C2 PO
== END | disposition home or self-care (01) ==
LOC: LAB 12:07
PROVIDERS: ATTEND Podiatrist
DX: M86.8X7 Other osteomyelitis, ankle and foot (principal)
CPT/HCPCS: 73630

== ENCOUNTER → 2018-09-25 | Outpatient (CLI) | payer MEDICARE, OTHER | END | disposition home or self-care (01) | LOC: NUC 11:05 | PROVIDERS: ATTEND Podiatrist | DX: M86.8X7 Other osteomyelitis, ankle and foot (principal) | CPT/HCPCS: 78315; A9503 ==

== ENCOUNTER → 2018-10-22 | Outpatient (CLI) | payer MEDICARE, OTHER | END | disposition home or self-care (01) | LOC: RAD 10:51 | PROVIDERS: ATTEND Podiatrist | DX: M86.8X7 Other osteomyelitis, ankle and foot (principal) | CPT/HCPCS: 73630 ==

== ENCOUNTER 2018-10-30 07:13 | Observation (INO) | payer MEDICARE, OTHER ==
[2018-10-30] VITALS (14 sets, daily range): BP systolic 127–197; BP diastolic 68–93; PULSE 58–66; RESP 18–25; Ht 172.7 cm; Wt 94.0 kg
[~2018-10-30] VITALS: Ht 172.7 cm; Wt 94.0 kg
[2018-10-30] MEDS ORDERED: SOD CHLORIDE 0.9% 1,000 ML IV STA (07:56)
--- NOTE | 2018-10-30 08:58 | ERD ---
ER Documentation Chief Complaint Chief Complaint pt is [facility]acio family , sent by "foot for ostomyelitits " Right foot HPI This is an 83-year-old male who was sent by his retail interior designer for osteomyelitis in the right first metatarsal. Patient is going to have surgery tonight for amputation. Patient has minimal pain and has been working with his retail interior designer for several months to try to salvage the bone but is failing. ROS All systems reviewed and are negative except as per history of present illness. Medications Home Meds Active Scripts Levofloxacin* (Levaquin*) 500 Mg Tablet, 500 MG PO DAILY for 14 Days, TAB Prov:AMAYA KENNEDY F 03/12/18 Reported Medications Ferrous Sulfate* (Ferrous Sulfate*) 325 Mg Tabec, 325 MG PO DAILY, TAB 03/05/18 Spironolactone* (Aldactone*) 5 Mg/Ml (COMPOUNDED) Susp, 12.5 MG PO DAILY for 30 Days, BOTTLE (COMPOUNDED) 03/05/18 Sitagliptin* (Januvia*) 100 Mg Tablet, 100 MG PO DAILY, #30 TAB 03/05/18 Canagliflozin (Invokana) 300 Mg Tablet, 300 MG PO DAILY, TAB 03/05/18 Rivaroxaban* (Xarelto*) 20 Mg Tablet, 20 MG PO WITH DINNER, TAB 03/05/18 Budesonide-Formoterol Fumarate* (Symbicort*) 160-4.5 Hfa.aer.ad, 2 PUFF INHAL ATION BID, #1 EACH 03/05/18 Atorvastatin* (Atorvastatin*) 80 Mg Tablet, 80 MG PO QHS, #30 TAB 03/05/18 Tamsulosin Hcl* (Tamsulosin Hcl*) 0.4 Mg Cap.er.24h, 0.4 MG PO DAILY, CAP 03/05/18 Pantoprazole* (Pantoprazole*) 40 Mg Tablet.dr, 40 MG PO AC BREAKFAST DINNER, TAB 03/05/18 Losartan Potassium* (Losartan Potassium*) 50 Mg Tablet, 50 MG PO BID, TAB 03/05/18 Carvedilol* (Carvedilol*) 25 Mg Tablet, 25 MG PO BID, #60 TAB 03/05/18 Nifedipine* (Nifedipine ER*) 30 Mg Tablet.sa, 30 MG PO DAILY, TAB.SA 03/05/18 Ranitidine Hcl* (Ranitidine Hcl*) 150 Mg Tablet, 150 MG PO HS, #30 TAB 03/05/18 Furosemide* (Furosemide*) 20 Mg Tablet, 20 MG PO DAILY, #60 TAB 03/05/18 Glimepiride* (Glimepiride*) 4 Mg Tablet, 4 MG PO WITH BREAKFAST DINNE, TAB 03/05/18 Insulin Degludec (Tresiba Flextouch U-100) 100 Unit/1 Ml Insuln.pen, 20 UNIT SQ QHS 03/05/18 Allergies Allergies: Coded Allergies: No Known Allergy (Unverified , 03/05/18) PMhx/Soc History of Surgery: Yes (CABG 1995, PACEMAKER 2011) Anesthesia Reaction: No Hx Neurological Disorder: No Hx Respiratory Disorders: No Hx Cardiac Disorders: Yes (CABG, ME, HTN, CAD, HDL) Hx Psychiatric Problems: No Hx Miscellaneous Medical Probl: Yes (DM) Hx Alcohol Use: No Hx Substance Use: No Hx Tobacco Use: No Smoking Status: Never smoker FmHx Family History: No coronary disease Physical Exam Vitals Vital Signs Date Temp Pulse Resp B/P (MAP) Pulse Ox O2 O2 Flow FiO2 Time Delivery Rate 10/30/18 98.7 70 16 183/77 100 07:15 (112) Physical Exam Const: No acute distress Head: Atraumatic Eyes: Normal Conjunctiva ENT: Normal External Ears, Nose and Mouth. Neck: Full range of motion. No meningismus. Resp: Clear to auscultation bilaterally Cardio: Regular rate and rhythm, no murmurs Abd: Soft, non tender, non distended. Normal bowel sounds Skin: No petechiae or rashes Back: No midline or flank tenderness Ext: No cyanosis, or edema, right toes were amputated with bandage Neur: Awake and alert Psych: Normal Mood and Affect Result Diagram: 10/30/18 0800 10/30/18 0800 Results 24 hrs Laboratory Tests Test 10/30/18 08:00 White Blood Count 7.5 10^3/ul Red Blood Count 3.17 10^6/ul Hemoglobin 9.4 g/dl Hematocrit 29.8 % Mean Corpuscular Volume 94.0 fl Mean Corpuscular Hemoglobin 29.7 pg Mean Corpuscular Hemoglobin Concent 31.5 g/dl Red Cell Distribution Width 12.9 % Platelet Count 205 10^3/UL Mean Platelet Volume 10.1 fl Immature Granulocytes % 0.500 % Neutrophils % 54.5 % Lymphocytes % 28.1 % Monocytes % 8.7 % Eosinophils % 7.7 % Basophils % 0.5 % Nucleated Red Blood Cells % 0.0 /100WBC Immature Granulocytes # 0.040 10^3/ul Neutrophils # 4.1 10^3/ul Lymphocytes # 2.1 10^3/ul Monocytes # 0.7 10^3/ul Eosinophils # 0.6 10^3/ul Basophils # 0.0 10^3/ul Nucleated Red Blood Cells # 0.0 10^3/ul Prothrombin Time 19.5 Sec Prothrombin Time Ratio 1.5 INR International Normalized Ratio 1.64 Activated Partial Thromboplast Time 45.0 Sec Sodium Level 147 mmol/L Potassium Level 4.4 mmol/L Chloride Level 109 mmol/L Carbon Dioxide Level 26 mmol/L Anion Gap 12 Blood Urea Nitrogen 24 mg/dl Creatinine 1.38 mg/dl Est Glomerular Filtrat Rate mL/min mL/min Glucose Level 72 mg/dl Calcium Level 9.6 mg/dl Total Bilirubin 0.2 mg/dl Direct Bilirubin 0.00 mg/dl Indirect Bilirubin 0.2 mg/dl Aspartate Amino Transf (AST/SGOT) 16 IU/L Alanine Aminotransferase (ALT/SGPT) 16 IU/L Alkaline Phosphatase 55 IU/L Total Protein 6.5 g/dl Albumin 3.6 g/dl Globulin 2.90 g/dl Albumin/Globulin Ratio 1.24 Current Medications Medications Dose Sig/Rimma Start Time Status Last (Trade) Ordered Route PRN Stop Time Admin Dose Reason Admin Sodium 1,000 ml @ Q5H STAT 10/30/18 10/30/18 Chloride 200 mls/hr IV 07:56 08:06 10/30/18 12:55 Procedures/MDM Ordering MD: MARIA GUADALUPE ANDERSON DO Location: E/R Room/Bed: PROCEDURE: XR Chest. CLINICAL INDICATION: Chest pain . TECHNIQUE: Single frontal chest x-ray. COMPARISON: CHEST 03/05/2018; CHEST 01/04/2017 FINDINGS: Cardiomegaly with sternotomy wires and CABG clips are present. Left-sided biventricular AICD is in place. . The lungs are clear of alveolar infiltrates, edema, or effusions.. Calcific atherosclerosis of the aorta is present.. The osseous structures are intact. IMPRESSION: No acute cardiopulmonary disease. Cardiomegaly status post CABG with left-sided AICD in place. RPTAT: GG .Mendoza Bernard MD, Date Time Electronically viewed and signed by .Mendoza Bernard MD, on 10/30/2018 08:33 .L/ CC: MARIA GUADALUPE ANDERSON DO [id number] EKG: Rate/Rhythm: Electronic pacemaker QRS, ST, QT: NORMAL IA, QRS, QT] Impression: Paced rhythm Patient will be admitted to panel for OR tonight Departure Diagnosis: Primary Impression: Osteomyelitis Osteomyelitis type: unspecified type Osteomyelitis location: foot Laterality: right Qualified Codes: M86.9 - Osteomyelitis, unspecified Condition: Stable MARIA GUADALUPE ANDERSON DO Oct 30, 2018 08:58
[2018-10-30] MEDS ORDERED: SOD CHLORIDE 0.9% 1,000 ML IV SCH (09:05)
[2018-10-30] MEDS ORDERED: ONDANSETRON 4 MG INJ IV PRN ×2 (09:30→13:00)
[2018-10-30] MEDS ORDERED: ACETAMINOPHEN 325 MG TAB PO PRN ×2 (09:30→13:00)
[2018-10-30] MEDS ORDERED: ERGO500013 ORAL (10:52)
[2018-10-30] MEDS ORDERED: NAPR-688 PO (10:52)
[2018-10-30] MEDS ORDERED: SAN30GM TOP (10:52)
[2018-10-30] MEDS ORDERED: SPIR25TA PO (10:54)
[2018-10-30] MEDS ORDERED: DOCU250C58 PO (11:11)
--- NOTE | 2018-10-30 12:30 | HP ---
Date/Time of Note Date/Time of Note DATE: 10/30/18 TIME: 12:30 Assessment/Plan VTE Prophylaxis Pharmacological prophylaxis: NA/contraindicated Pharm contraindication: surgical contra Lines/Catheters IV Catheter Type (from [facility]): Saline Lock Assessment/Plan Hospital Course 83-year-old male with comorbidities including diabetes mellitus type 2, hypertension, atrial fibrillation, chronic kidney disease, GERD, peripheral artery disease, CAD status post coronary artery bypass grafting, and right foot osteomyelitis status post right first and second toe amputation in February 2018. The patient was brought to emergency room as per the instruction of the patient's special client bus driver for further surgical intervention of the right foot. The patient's right foot x-ray done on 09/21/2018 was showing lysis of the first metatarsal head medially and laterally consistent with osteomyelitis. 1. Osteomyelitis of the first metatarsal head. -Continue antimicrobials including coverage for MRSA. -Patient scheduled for surgical intervention on 10/30/2018. -ID consult for antimicrobial management. 2. Diabetes mellitus type 2. -Hemoglobin A1c 6.9. -Start the patient on sliding scale insulin. 3. CAD status post coronary artery bypass grafting. -Resume cardiac medications. 4. Dyslipidemia. -Resume statins. 5. Paroxysmal atrial fibrillation. -Currently regular rhythm. -Hold factor Xa inhibitors because of planned surgery. 6. Hypertension. -Resume antihypertensives. 7. Chronic kidney disease. -Continue to monitor BUN and creatinine closely. 8. GERD. -Continue Protonix. 9. BPH. -Resume tamsulosin. Plan: The patient will be admitted to inpatient medical surgical floor. The patient will be kept n.p.o. for the planned surgical intervention. The patient will be started on DVT prophylaxis and gastrointestinal prophylaxis. The patient will remain a full code. Activities will be bedrest. The rest of the patient's management will be based on the clinical course, inputs from consultants, and the results of diagnostic studies. Based on the patient's clinical presentation, he most probably requires at least 2 midnights' stay for further management and evaluation of his clinical presentation. The patient was seen in collaboration with Dr. Silva. The patient has extensive cardiac history. Therefore, the patient's cardio logist Dr. Alba was contacted who talked to Dr. Neri and as per Dr. Neri's conversation with me, the patient was cleared by Dr. Alba for surgical intervention to the right foot. Result Diagram: 10/30/18 0800 10/30/18 0800 Results 24hrs Laboratory Tests Test 10/30/18 08:00 White Blood Count 7.5 # Red Blood Count 3.17 L Hemoglobin 9.4 L Hematocrit 29.8 L Mean Corpuscular Volume 94.0 Mean Corpuscular Hemoglobin 29.7 # Mean Corpuscular Hemoglobin Concent 31.5 L Red Cell Distribution Width 12.9 # Platelet Count 205 Mean Platelet Volume 10.1 Immature Granulocytes % 0.500 H Neutrophils % 54.5 Lymphocytes % 28.1 Monocytes % 8.7 Eosinophils % 7.7 H Basophils % 0.5 Nucleated Red Blood Cells % 0.0 Immature Granulocytes # 0.040 H Neutrophils # 4.1 Lymphocytes # 2.1 Monocytes # 0.7 Eosinophils # 0.6 H Basophils # 0.0 Nucleated Red Blood Cells # 0.0 Prothrombin Time 19.5 #H Prothrombin Time Ratio 1.5 INR International Normalized Ratio 1.64 Activated Partial Thromboplast Time 45.0 H Sodium Level 147 H Potassium Level 4.4 Chloride Level 109 Carbon Dioxide Level 26 Anion Gap 12 Blood Urea Nitrogen 24 H Creatinine 1.38 H Est Glomerular Filtrat Rate mL/min Glucose Level 72 Calcium Level 9.6 Total Bilirubin 0.2 Direct Bilirubin 0.00 Indirect Bilirubin 0.2 Aspartate Amino Transf (AST/SGOT) 16 Alanine Aminotransferase (ALT/SGPT) 16 Alkaline Phosphatase 55 Total Protein 6.5 Albumin 3.6 Globulin 2.90 Albumin/Globulin Ratio 1.24 HPI/ROS Admit Date/Time Admit Date/Time Hx of Present Illness This is an 83-year-old male with a past medical history of diabetes mellitus type 2, hypertension, atrial fibrillation, chronic kidney disease, GERD, peripheral artery disease, CAD status post coronary artery bypass grafting, and right foot osteomyelitis status post right first and second toe amputation. The patient was discharged home on March 12, 2018 after treatment for right foot osteomyelitis along with amputation of the right first and second toe. The patient's wound culture that was done on 03/09/2018 was showing positive Klebsiella oxytoca, Staph aureus, and Corynebacterium jeikeium. As per the patient's family, the patient was on antimicrobials prescribed by the to avalos. The patient's wound was not getting better and therefore, the patient's special client bus driver brought him to the hospital for surgical intervention of the right foot. In the emergency room, the patient's WBC was within normal limits. The patient had a BUN and creatinine of 24 and 1.3 respectively. The patient's right foot X- ray done on 09/21/2018 was showing lysis of the first metatarsal head medially and laterally consistent with osteomyelitis. ROS Constitutional: no complaints Eyes: no complaints ENT: no complaints Respiratory: no complaints Cardiovascular: no complaints Gastrointestinal: no complaints Genitourinary: no complaints Musculoskeletal: bone/joint pain Skin: skin lesions Neurologic: no complaints Endocrine: no complaints Lymphatic: no complaints Psychological: no complaints Immunologic: no complaints PMH/Family/Social Past Medical History 1. Hypertension. 2. DM. 3. CKD. 4. CAD, S/P CABG. 5. A. fib. 6. GERD. 7. Obesity. 8. Right foot osteomyelitis. 9. Peripheral artery disease. Medications Current Medications Sodium Chloride 1,000 ml @ 200 mls/hr Q5H STAT IV Last administered on 10/30/18at 08:06; Admin Dose 200 MLS/HR; Start 10/30/18 at 07:56; Stop 10/30/18 at 12:55 Sodium Chloride 1,000 ml @ 80 mls/hr [id number] IV Last administered on 10/30/18at 09:53; Admin Dose 80 MLS/HR; Start 10/30/18 at 09:05; Stop 10/30/18 at 21:34 Ondansetron HCl (Zofran Inj) 4 mg BRIDGE ORDER PRN IV NAUSEA/VOMITING; Start 10/30/18 at 09:30; Stop 10/31/18 at 09:29 Acetaminophen (Tylenol Tab) 650 mg ER BRIDGE PRN PO .MILD PAIN 1-3 OR TEMP; Start 10/30/18 at 09:30; Stop 10/31/18 at 09:29 Coded Allergies: No Known Allergy (Unverified , 03/05/18) Past Surgical History Past Surgical Hx: coronary bypass surgery, other (Right 1st and 2nd toe amputation, ICD implant.) Family History Significant Family History: other Social History Lives at home with his family. Alcohol Use: none Smoking Status: Former smoker Drug Use: none Exam/Review of Systems Vital Signs Vitals Vital Signs Date Temp Pulse Resp B/P (MAP) Pulse Ox O2 O2 Flow FiO2 Time Delivery Rate 10/30/18 60 16 152/62 97 Room Air 09:54 (92) 10/30/18 98.7 07:15 Exam Exam General: Obese, 83 year-old male lying in bed in no apparent distress. HEENT: Normocephalic, atraumatic. Eyes: Anicteric sclerae, conjunctivae clear. ENT: Nasal septum midline, oral mucosa moist. Neck supple, no JVD noticed. Respiratory: Bilaterally diminished breath sounds. No use of accessory muscles of respiration. No adventitious breath sounds. Cardiovascular: S1, S2 heard. Regular rate and rhythm. Abdomen: Soft, nontender, and nondistended. Bowel sounds positive in all 4 quadrants. Genitourinary: Deferred. Extremities: No cyanosis, no clubbing, no edema. Right foot dressing. Neurologic: Cranial nerves II through XII grossly intact. The patient is awake, alert, and oriented. GISELLE GUILLEN NP Oct 30, 2018 12:30
[2018-10-30] MEDS ORDERED: NACL 0.9% 3 ML SYG IV SCH (13:00)
[2018-10-30] MEDS ORDERED: HYDROCODONE/APAP (5/325) TAB PO PRN (13:00)
[2018-10-30] MEDS ORDERED: GLUCOSE GEL 15 GRAM TUBE BUCCAL PRN (14:00)
[2018-10-30] MEDS ORDERED: GLUCAGON 1 MG INJ IM PRN (14:00)
[2018-10-30] MEDS ORDERED: GLUCOSE GEL 15 GRAM TUBE PO PRN ×2 (14:00)
[2018-10-30] MEDS ORDERED: DEXTROSE 50% 50 ML SYRINGE IV PRN ×2 (14:00)
[2018-10-30] MEDS ORDERED: VANCOMYCIN IV PER PHARMACY XX SCH (14:30)
[2018-10-30] MEDS ORDERED: hydrALAzine 20 MG INJ IV PRN (14:30)
[2018-10-30] MEDS: DEXTROSE 5%-0.45% NACL 1,000 ML IV SCH (14:33)
[2018-10-30] MEDS: NIFEdipine (XL) 30 MG TAB PO SCH (14:40)
[2018-10-30] MEDS: FUROSEMIDE 20 MG TAB PO SCH (14:40)
[2018-10-30] MEDS: LOSARTAN 50 MG TAB PO SCH ×2 (14:41→21:17)
[2018-10-30] MEDS ORDERED: VANCOMYCIN HCL 1.75 GM in SOD CHLORIDE 0.9% 500 ML IVPB ONE (16:00)
[2018-10-30] MEDS: PANTOPRAZOLE (EC) 40 MG TAB PO SCH (17:19)
[2018-10-30] MEDS: INSULIN ASPART [NOVOLOG] 3 ML PEN SC SCH ×2 (17:20→21:00)
--- NOTE | 2018-10-30 17:21 | PREAC ---
Date/Time of Note Date/Time of Note DATE: 10/30/18 TIME: 17:15 Anesthesia Eval and Record Evaluation Time Pre-Procedure Interview DATE: 10/30/18 TIME: 17:15 Age 83 Sex male NPO: 8 hrs Preoperative diagnosis right first metatarsal osteomyelitis Planned procedure removing first metatarsal head right foot Past Medical History Past Medical History: Includes Cardio: HTN, Dyslipidemia, CAD, CABG, PTCA/Stent, Arrythmia, CHF Endo: Diabetes Renal: CKD, BPH Surgery & Anesthesia Issues No known issue Meds Anticoagulation: No Beta Austin within 24 hr: Yes Reported Medications Docusate Sodium* (Colace*) 250 Mg Capsule, 250 MG PO DAILY, #30 CAP 10/30/18 Spironolactone* (Aldactone*) 25 Mg Tablet, 25 MG PO DAILY, #30 TAB 10/30/18 Collagenase* (Santyl*) 30 Gm Oint..gm., 1 APPLIC TOP DAILY, #1 TUB 10/30/18 Naproxen* (Naproxen*) 500 Mg Tablet, 500 MG PO BID PRN for PAIN LEVEL 4-6, TAB 10/30/18 Ergocalciferol (Vitamin D2) (VITAMIN D2) 50,000 Unit Capsule, 1 CAP ORAL WEEKLY 10/30/18 Ferrous Sulfate* (Ferrous Sulfate*) 325 Mg Tabec, 325 MG PO DAILY, TAB 03/05/18 Sitagliptin* (Januvia*) 100 Mg Tablet, 100 MG PO DAILY, #30 TAB 03/05/18 Rivaroxaban* (Xarelto*) 20 Mg Tablet, 20 MG PO WITH DINNER, TAB 03/05/18 Budesonide-Formoterol Fumarate* (Symbicort*) 160-4.5 Hfa.aer.ad, 2 PUFF INHALATION BID, #1 EACH 03/05/18 Atorvastatin* (Atorvastatin*) 80 Mg Tablet, 80 MG PO QHS, #30 TAB 03/05/18 Tamsulosin Hcl* (Tamsulosin Hcl*) 0.4 Mg Cap.er.24h, 0.4 MG PO DAILY, CAP 03/05/18 Pantoprazole* (Pantoprazole*) 40 Mg Tablet.dr, 40 MG PO AC BREAKFAST DINNER, TAB 03/05/18 Losartan Potassium* (Losartan Potassium*) 50 Mg Tablet, 50 MG PO BID, TAB 03/05/18 Carvedilol* (Carvedilol*) 25 Mg Tablet, 25 MG PO BID, #60 TAB 03/05/18 Nifedipine* (Nifedipine ER*) 30 Mg Tablet.sa, 30 MG PO DAILY, TAB.SA 03/05/18 Ranitidine Hcl* (Ranitidine Hcl*) 150 Mg Tablet, 150 MG PO HS, #30 TAB 03/05/18 Furosemide* (Furosemide*) 20 Mg Tablet, 20 MG PO DAILY, #60 TAB 03/05/18 Glimepiride* (Glimepiride*) 4 Mg Tablet, 4 MG PO WITH BREAKFAST DINNE, TAB 03/05/18 Insulin Degludec (Tresiba Flextouch U-100) 100 Unit/1 Ml Insuln.pen, 30 UNIT SQ QHS 03/05/18 Discontinued Reported Medications Spironolactone* (Aldactone*) 5 Mg/Ml (COMPOUNDED) Susp, 12.5 MG PO DAILY for 30 Days, BOTTLE (COMPOUNDED) 03/05/18 Canagliflozin (Invokana) 300 Mg Tablet, 300 MG PO DAILY, TAB 03/05/18 Discontinued Scripts Levofloxacin* (Levaquin*) 500 Mg Tablet, 500 MG PO DAILY for 14 Days, TAB Prov:BRENTAMAYA F 03/12/18 Current Medications Sodium Chloride 1,000 ml @ 80 mls/hr [id number] IV Last administered on 10/30/18at 09:53; Admin Dose 80 MLS/HR; Start 10/30/18 at 09:05; Stop 10/30/18 at 21:34 IV Flush (NS 3 ml) 3 ml PER PROTOCOL IV ; Start 10/30/18 at 13:00 Ondansetron HCl (Zofran Inj) 4 mg Q6H PRN IV NAUSEA/VOMITING; Start 10/30/18 at 13:00 Acetaminophen (Tylenol Tab) 650 mg Q6H PRN PO .PAIN 1-3 OR TEMP; Start 10/30/18 at 13:00 Acetaminophen/ Hydrocodone Bitart (Imogene (5/325)) 1 tab Q6H PRN PO .MOD PAIN 4- 6; Start 10/30/18 at 13:00 Atorvastatin Calcium (Lipitor) 80 mg QHS PO ; Start 10/30/18 at 21:00 Ferrous Sulfate (Ferrous Sulfate (Ec)) 325 mg DAILY PO ; Start 10/31/18 at 09:00 Pantoprazole (Protonix Tab) 40 mg AC BREAKFAST DINNER PO ; Start 10/30/18 at 17:30 Spironolactone (Aldactone) 25 mg DAILY PO ; Start 10/31/18 at 09:00 Tamsulosin HCl (Flomax) 0.4 mg QHS PO ; Start 10/30/18 at 21:00 Insulin Aspart (Novolog Insulin Pen) NOVOLOG *MILD* ALGORITHM WITH MEALS BEDTIME SC ; Start 10/30/18 at 18:00 Dextrose/Sodium Chloride 1,000 ml @ 75 mls/hr [id number] IV Last administered on 10/30/18at 14:33; Admin Dose 75 MLS/HR; Start 10/30/18 at 13:00 Miscellaneous Information 1 ea NOTE XX ; Start 10/30/18 at 14:00 Glucose (Glutose) 15 gm Q15M PRN PO DECREASED GLUCOSE; Start 10/30/18 at 14:00 Glucose (Glutose) 22.5 gm Q15M PRN PO DECREASED GLUCOSE; Start 10/30/18 at 14:00 Dextrose (D50w Syringe) 25 ml Q15M PRN IV DECREASED GLUCOSE; Start 10/30/18 at 14:00 Dextrose (D50w Syringe) 50 ml Q15M PRN IV DECREASED GLUCOSE; Start 10/30/18 at 14:00 Glucagon (Glucagen) 1 mg Q15M PRN IM DECREASED GLUCOSE; Start 10/30/18 at 14:00 Glucose (Glutose) 15 gm Q15M PRN BUCCAL DECREASED GLUCOSE; Start 10/30/18 at 14:00 Vancomycin HCl (Vanco Iv Per Pharmacy) VANCOMYCIN PER PHARMACY PER PROTOCOL XX ; Start 10/30/18 at 14:30 Piperacillin Sod/ Tazobactam Sod 100 ml @ 200 mls/hr Q6 IVPB ; Start 10/30/18 at 18:00 Hydralazine HCl (Apresoline) 10 mg Q6H PRN IV SBP>160; Start 10/30/18 at 14:30 Carvedilol (Coreg) 25 mg BID PO Last administered on 10/30/18at 14:41; Admin Dose 25 MG; Start 10/30/18 at 14:30 Furosemide (Lasix) 20 mg DAILY PO Last administered on 10/30/18at 14:40; Admin Dose 20 MG; Start 10/30/18 at 14:30 Losartan Potassium (Cozaar) 50 mg BID PO Last administered on 10/30/18at 14:41; Admin Dose 50 MG; Start 10/30/18 at 14:30 Nifedipine (Procardia Xl) 30 mg DAILY PO Last administered on 10/30/18at 14:40; Admin Dose 30 MG; Start 10/30/18 at 14:30 Vancomycin HCl 1.75 gm/Sodium Chloride 500 ml @ 125 mls/hr ONCE ONCE IVPB Last administered on 10/30/18at 15:59; Admin Dose 125 MLS/HR; Start 10/30/18 at 16:00; Stop 10/30/18 at 19:59 Vancomycin HCl 1.5 gm/Sodium Chloride 250 ml @ 83.333 mls/ hr Q24H IVPB ; Start 10/31/18 at 16:00 Meds reviewed: Yes Allergies Coded Allergies: No Known Allergy (Unverified , 03/05/18) Allergies Reviewed: Yes Labs/Studies Labs Reviewed: Reviewed by anesthesiologist Result Diagram: 10/30/18 0800 10/30/18 0800 Laboratory Tests 10/30/18 08:00 test: N/A Studies: ECG (afib) Pre-procedure Exam Last vitals Vital Signs Date Temp Pulse Resp B/P (MAP) Pulse Ox O2 O2 Flow FiO2 Time Delivery Rate 10/30/18 60 19 185/80 14:11 (115) 10/30/18 97.4 97 Room Air 14:00 Airway: Adequate mouth opening Mallampati: Mallampati I Teeth: Abnormal (denture) Lung: Normal Heart: Normal ASA Physical Status ASA physical status: 3 Emergency: None Planned Anesthetic General/MAC: MAC Planned Pain Management Parenteral pain med Pre-operative Attestations Prior to commencing anesthesia and surgery, the patient was re-evaluated, there was verification of: *The patient's identity *The results of appropriate recent lab work and preoperative vital signs *The above evaluation not changing prior to induction *Anesthetic plan, risk benefits, alternative and complications discussed with patient/family; questions answered; patient/family understands, accepts and wishes to proceed. GILBERTO LIU MD Oct 30, 2018 17:20
[2018-10-30] MEDS ORDERED: LIDOCAINE 1%/EPI (1:100,000) (MDV) 20 ML ONE (17:32)
[2018-10-30] MEDS ORDERED: BUPIVACAINE 0.5% (SDV) 30 ML INJ ONE (17:32)
[2018-10-30] MEDS ORDERED: LIDOCAINE 1% (MPF) 30 ML INJ ONE (17:32)
[2018-10-30] MEDS ORDERED: BUPIVACAINE 0.5%/EPI (SDV) 30 ML INJ ONE (17:32)
[2018-10-30] MEDS ORDERED: POLYMYXIN/BACITRACIN 1L IRRIG ONE (17:32)
--- NOTE | 2018-10-30 18:00 | CONS ---
DATE OF ADMISSION: 10/30/2018 DATE OF CONSULTATION: 10/30/2018 TYPE OF CONSULTATION: Infectious disease. REASON FOR CONSULTATION: Antibiotic management. HISTORY OF PRESENT ILLNESS: Tay Coker is an 83-year-old [place] male who was brought in by family with osteomyelitis of the right foot. He was sent in by his heavy equipment operator apprentice for osteomyelit is of the right 1st metatarsal and the plan is to have him go to surgery tonight for amputation. He has minimal pain, but has failed to salvage the bone itself. PAST SURGICAL HISTORY: Status post coronary artery bypass in 1995, status post pacemaker in 2011. PAST MEDICAL HISTORY: History of coronary artery disease, hyperlipidemia, hypertension and [place]. He a lso has diabetes mellitus. FAMILY HISTORY: Noncontributory. SOCIAL HISTORY: He does not smoke, drink or abuse drugs. ALLERGIES: NONE TO PENICILLIN, SULFA OR FOODS. MEDICATIONS: Per chart. REVIEW OF SYSTEMS: Noncontributory. PHYSICAL EXAMINATION: GENERAL: The patient is well-developed, well-nourished elderly male who is in no acute distress. VITAL SIGNS: Stable. He is afebrile. SKIN: Without generalized rash. HEENT: Within normal limits. NECK: Supple. LYMPH NODES: None palpable. CHEST: Decreased breath sounds at the bases. HEART: Without murmur or gallop. ABDOMEN: Soft, nontender without organosplenomegaly or masses. EXTREMITIES: Right foot is bandaged. He is status post right 1st and 2nd toe amputation in 02/2018. He is scheduled for surgical intervention this evening. RECTAL AND GENITAL: Deferred. NEUROLOGIC: No focal neurological abnormality. ANCILLARY LABORATORY DATA: His white count is 7.5, H and H is 9.4 and 29.8, platelet count 205,000. BUN and creatinine is 24/1.38. The patient is currently on vancomycin and Zosyn. DIAGNOSTIC DATA: Chest x-ray shows cardiomegaly, status post coronary artery bypass graft and left-s ided AICD in place. No acute cardiopulmonary disease. He has left-sided biventricular AICD. IMPRESSION AND PLAN: The patient is scheduled for surgical intervention sometime today. Continue hi m on current antibiotic therapy until surgery is completed. I want to thank the hospitalist for aski ng us to see this gentleman in consultation. Dictated By: RASHID RINALDI MD, JD/BRENDAN Conf#: [id number] DID#: [id number] CC: PAULA ROMO MD; MARQUISE BAUTISTA MD;*EndCC*
--- NOTE | 2018-10-30 18:59 | SIPON ---
Date/Time of Note Date/Time of Note DATE: 10/30/18 TIME: 18:57 Operative Report Preoperative Diagnosis osteomyelitis 1st metatarsal head rt foot Postoperative Diagnosis same Operation/Procedure Performed resection of the head and neck 1st met head rt foot Surgeon see signature line [employer] assistant manager none Anesthesia: MAC Estimated blood loss: 0 - 10 ml's Transfusion Required none Specimen head and neck of 1st met head rt foot Grafts/Implants none Complications none MARQUISE BAUTISTA DPM Oct 30, 2018 18:59
[2018-10-30] MEDS: PIPER-TAZO 3.375 GM IV (PMX) 100 ML IVPB SCH ×2 (19:17→23:57)
[2018-10-30] MEDS ORDERED: ATORVASTATIN 80 MG TAB PO SCH (21:00)
[2018-10-30] MEDS ORDERED: LOSARTAN 50 MG TAB PO SCH (21:00)
[2018-10-30] MEDS ORDERED: TAMSULOSIN (SR) 0.4 MG CAP PO SCH (21:00)
--- NOTE | 2018-10-30 23:12 | PAC ---
Date/Time of Note Date/Time of Note DATE: 10/30/18 TIME: 23:11 Post-Anesthesia Notes Post-Anesthesia Note Last documented vital signs Vital Signs Date Temp Pulse Resp B/P (MAP) Pulse Ox O2 O2 Flow FiO2 Time Delivery Rate 10/30/18 98.7 66 18 159/70 98 20:17 (99) 10/30/18 Room Air 19:24 10/30/18 2.0 19:12 Activity: WNL Respiratory function: WNL Cardiovascular function: WNL Mental status: Baseline Pain reasonably controlled: Yes Hydration appropriate: Yes Nausea/Vomiting absent: No GILBERTO LIU MD Oct 30, 2018 23:12
[2018-10-31] MEDS: DEXTROSE 5%-0.45% NACL 1,000 ML IV SCH (02:20)
[2018-10-31 02:37] VITALS: BP 127/58; PULSE 62; RESP 18
[2018-10-31] MEDS ORDERED: COLLAGENASE 5 GM (UD JAR) TOP ONE (04:13)
[2018-10-31] MEDS: PANTOPRAZOLE (EC) 40 MG TAB PO SCH ×2 (06:19→17:23)
[2018-10-31] MEDS: PIPER-TAZO 3.375 GM IV (PMX) 100 ML IVPB SCH ×3 (06:19→18:42)
[2018-10-31 07:40] VITALS: BP 120/57; PULSE 62; RESP 16
[2018-10-31] MEDS: LOSARTAN 50 MG TAB PO SCH (08:49)
[2018-10-31] MEDS: NIFEdipine (XL) 30 MG TAB PO SCH (08:49)
[2018-10-31] MEDS: FUROSEMIDE 20 MG TAB PO SCH (08:50)
[2018-10-31] MEDS: INSULIN ASPART [NOVOLOG] 3 ML PEN SC SCH ×3 (08:51→17:21)
[2018-10-31] MEDS ORDERED: FERROUS SULFATE (EC) 325 MG TAB PO SCH (09:00)
[2018-10-31] MEDS ORDERED: FUROSEMIDE 20 MG TAB PO SCH (09:00)
[2018-10-31] MEDS ORDERED: NIFEdipine (XL) 30 MG TAB PO SCH (09:00)
[2018-10-31] MEDS ORDERED: SPIRONOLACTONE 25 MG TAB PO SCH (09:00)
--- NOTE | 2018-10-31 09:31 | OPR ---
DATE OF OPERATION: 10/31/2018 PREOPERATIVE DIAGNOSIS: Osteomyelitis of the 1st metatarsal head, right foot. POSTOPERATIVE DIAGNOSIS: Osteomyelitis of the 1st metatarsal head, right foot. OPERATION PERFORMED: Resection of the head and neck of 1st metatarsal bone, right foot. DESCRIPTION OF PROCEDURE: The patient was brought to the OR and placed in a supine position on the o perating room table. Anesthesia was achieved using MAC and local for a total of 20 mL of lidocaine 1 % plain. The ankle was then wrapped several times with Webril and tourniquet was placed over the Web ril. The foot was then prepped and draped in the usual sterile fashion and tourniquet was inflated t o 250 mmHg. Attention was then directed to the medial aspect of the first metatarsal bone. A 5 cm linear incisio n was made medially and the incision was deepened in the same plane using sharp dissection. The head of the first metatarsal bone was released from surrounding soft tissues and the head and neck was re sected in toto using power saw. Surgical site was then flushed with copious amount of normal saline and then subcutaneous closure was obtained using 4-0 Vicryl and skin closure using 4-0 nylon in a sim ple interrupted fashion. The surgical site was then covered with Adaptic, 4 x 4s and Kerlix in a com pressive fashion. Next, the tourniquet was deflated and immediate capillary refill was observed to a ll digits of the right foot. The patient tolerated anesthesia and procedure well and left the OR for recovery room with vital signs stable and neurovascular status intact. Dictated By: MARQUISE GAY/BRENDAN Conf#: [id number] DID#: [id number] CC: MARQUISE BAUTISTA MD;*EndCC*
--- NOTE | 2018-10-31 13:07 | PDOCDIS ---
Discharge Instructions CONDITION [id number] Patient Condition: [id number] Stable HOME CARE INSTRUCTIONS: [id number] Special Diet: [id number] Carbohydrate controlled OTHER ORDERS: Other Orders: 1. Resume home medications. 2. Weightbearing on the right lower extremity as per podiatry. 3. Take a carbohydrate controlled diet. 4. Follow-up with your Dr. Neri as instructed. 5. Complete the course of antibiotics. GISELLE GUILLEN NP Oct 31, 2018 13:07
[2018-10-31 14:22] VITALS: BP 145/62; PULSE 60; RESP 16
--- NOTE | 2018-10-31 15:09 | CONS ---
Assessment/Plan Assessment/Plan Hospital Course (Demo Recall) No acute changes overnight. Patient is awake looks comfortable no fevers. Antimicrobials: Vancomycin, Zosyn WBC 7.2 H&H 9.2 and 29.2 platelets 196 neutrophils 61.8 BUN 19 creatinine 1.29 Physical examination: This is well-developed obese very pleasant elderly Frisian man who is alert in no distress. Head atraumatic normocephalic neck is supple chest rise symmetrical breath sounds clear heart S1-S2 abdomen soft bowel sounds present extremities with right foot Nikolas wrapped Assessment: 1. Right foot cellulitis, osteomyelitis of the first metatarsal head, status post resection 2. Coronary artery disease, status post CABG and permanent pacemaker 3. Diabetes 4. Coronary atrial fibrillation 5. Chronic kidney disease Plan: Patient remained stable per discussion with his podiatry infected bone was resected, patient is okay to be discharged on 2 weeks oral antibiotics, recommend oral Levaquin and doxycycline Consultation Date/Type/Reason Admit Date/Time Oct 30, 2018 at 09:05 Initial Consult Date Type of Consult id Date/Time of Note DATE: 10/31/18 TIME: 15:09 Exam/Review of Systems Exam Vitals Vital Signs Date Temp Pulse Resp B/P (MAP) Pulse Ox O2 O2 Flow FiO2 Time Delivery Rate 10/31/18 98.9 60 16 145/62 96 Room Air 14:22 (89) 10/30/18 2.0 19:12 Intake and Output 10/30/18 10/30/18 10/31/18 1515:00 23:00 07:00 IntakeIntake Total 1000 ml 925 ml 400 ml OutputOutput Total 20 ml BalanceBalance 1000 ml 905 ml 400 ml Results Result Diagram: 10/31/18 0638 10/31/18 0638 Results 24hrs Laboratory Tests Test 10/30/18 16:21 10/30/18 17:03 10/30/18 18:46 10/30/18 21:35 Erythrocyte 20 Sedimentation Rate Bedside Glucose 72 86 80 Test 10/31/18 06:38 10/31/18 08:05 10/31/18 12:16 White Blood Count 7.2 Red Blood Count 3.12 L Hemoglobin 9.2 L Hematocrit 29.2 L Mean Corpuscular 93.6 Volume Mean Corpuscular 29.5 Hemoglobin Mean Corpuscular 31.5 L Hemoglobin Concent Red Cell 12.9 Distribution Width Platelet Count 196 Mean Platelet Volume 10.6 H Immature 0.600 H Granulocytes % Neutrophils % 61.8 Lymphocytes % 22.2 Monocytes % 8.6 Eosinophils % 6.1 Basophils % 0.7 Nucleated Red Blood 0.0 Cells % Immature 0.040 H Granulocytes # Neutrophils # 4.5 Lymphocytes # 1.6 Monocytes # 0.6 Eosinophils # 0.4 Basophils # 0.1 Nucleated Red Blood 0.0 Cells # Sodium Level 143 Potassium Level 3.8 Chloride Level 109 Carbon Dioxide Level 25 Anion Gap 9 Blood Urea Nitrogen 19 Creatinine 1.29 H Est Glomerular Filtrat Rate mL/min Glucose Level 152 Calcium Level 9.4 Phosphorus Level 4.1 Magnesium Level 1.7 Total Bilirubin 0.2 Direct Bilirubin 0.00 Indirect Bilirubin 0.2 Aspartate Amino 25 # Transf (AST/SGOT) Alanine 16 Aminotransferase (AL T/SGPT) Alkaline Phosphatase 46 Total Protein 5.9 L Albumin 3.2 L Globulin 2.70 Albumin/Globulin 1.18 Ratio Triglycerides Level 110 Cholesterol Level 97 L LDL Cholesterol, 40 Calculated HDL Cholesterol 35 Cholesterol/HDL 2.7 Ratio Bedside Glucose 161 217 Medications Medication Current Medications IV Flush (NS 3 ml) 3 ml PER PROTOCOL IV ; Start 10/30/18 at 13:00 Ondansetron HCl (Zofran Inj) 4 mg Q6H PRN IV NAUSEA/VOMITING; Start 10/30/18 at 13:00 Acetaminophen (Tylenol Tab) 650 mg Q6H PRN PO .PAIN 1-3 OR TEMP; Start 10/30/18 at 13:00 Acetaminophen/ Hydrocodone Bitart ([place] (5/325)) 1 tab Q6H PRN PO .MOD PAIN 4- 6; Start 10/30/18 at 13:00 Atorvastatin Calcium (Lipitor) 80 mg QHS PO Last administered on 10/30/18at 21:18; Admin Dose 80 MG; Start 10/30/18 at 21:00 Ferrous Sulfate (Ferrous Sulfate (Ec)) 325 mg DAILY PO Last administered on 10/31/18at 08:49; Admin Dose 325 MG; Start 10/31/18 at 09:00 Pantoprazole (Protonix Tab) 40 mg AC BREAKFAST DINNER PO Last administered on 10/31/18at 06:19; Admin Dose 40 MG; Start 10/30/18 at 17:30 Spironolactone (Aldactone) 25 mg DAILY PO ; Start 10/31/18 at 09:00 Tamsulosin HCl (Flomax) 0.4 mg QHS PO Last administered on 10/30/18at 21:17; Admin Dose 0.4 MG; Start 10/30/18 at 21:00 Insulin Aspart (Novolog Insulin Pen) NOVOLOG *MILD* ALGORITHM WITH MEALS BEDTIME SC Last administered on 10/31/18at 12:19; Admin Dose 2 UNIT; Start 10/30/18 at 18:00 Miscellaneous Information 1 ea NOTE XX ; Start 10/30/18 at 14:00 Glucose (Glutose) 15 gm Q15M PRN PO DECREASED GLUCOSE; Start 10/30/18 at 14:00 Glucose (Glutose) 22.5 gm Q15M PRN PO DECREASED GLUCOSE; Start 10/30/18 at 14:00 Dextrose (D50w Syringe) 25 ml Q15M PRN IV DECREASED GLUCOSE; Start 10/30/18 at 14:00 Dextrose (D50w Syringe) 50 ml Q15M PRN IV DECREASED GLUCOSE; Start 10/30/18 at 14:00 Glucagon (Glucagen) 1 mg Q15M PRN IM DECREASED GLUCOSE; Start 10/30/18 at 14:00 Glucose (Glutose) 15 gm Q15M PRN BUCCAL DECREASED GLUCOSE; Start 10/30/18 at 14:00 Vancomycin HCl (Vanco Iv Per Pharmacy) VANCOMYCIN PER PHARMACY PER PROTOCOL XX ; Start 10/30/18 at 14:30 Piperacillin Sod/ Tazobactam Sod 100 ml @ 200 mls/hr Q6 IVPB Last administered on 10/31/18at 12:21; Admin Dose 200 MLS/HR; Start 10/30/18 at 18:00 Hydralazine HCl (Apresoline) 10 mg Q6H PRN IV SBP>160; Start 10/30/18 at 14:30 Carvedilol (Coreg) 25 mg BID PO Last administered on 10/31/18at 08:50; Admin Dose 25 MG; Start 10/30/18 at 14:30 Furosemide (Lasix) 20 mg DAILY PO Last administered on 10/31/18at 08:50; Admin Dose 20 MG; Start 10/30/18 at 14:30 Losartan Potassium (Cozaar) 50 mg BID PO Last administered on 10/31/18at 08:49; Admin Dose 50 MG; Start 10/30/18 at 14:30 Nifedipine (Procardia Xl) 30 mg DAILY PO Last administered on 10/31/18at 08:49; Admin Dose 30 MG; Start 10/30/18 at 14:30 Vancomycin HCl 1.5 gm/Sodium Chloride 250 ml @ 83.333 mls/ hr Q24H IVPB ; Start 10/31/18 at 16:00 FRANCISCO MOSELEY NP Oct 31, 2018 15:09
[2018-10-31] MEDS ORDERED: DOXY100T20 PO (15:19)
[2018-10-31] MEDS ORDERED: LEVO750T25 PO (15:19)
[2018-10-31] MEDS ORDERED: VANCOMYCIN HCL 1.5 GM in SOD CHLORIDE 0.9% 250 ML IVPB SCH (16:00)
--- NOTE | 2018-10-31 16:02 | DS ---
Date/Time of Note Date/Time of Note DATE: 10/31/18 TIME: 16:00 Discharge Summary Admission/Discharge Info Admit Date/Time Oct 30, 2018 at 09:05 Discharge Date/Time Discharge Diagnosis 1. Osteomyelitis of the first metatarsal head. S/P resection of the head and neck of 1st metatarsal bone. 2. Diabetes mellitus type 2. Hemoglobin A1c 6.9. 3. CAD status post coronary artery bypass grafting. 4. Dyslipidemia. 5. Paroxysmal atrial fibrillation. 6. Hypertension. 7. Chronic kidney disease. 8. GERD. 9. BPH. Patient Condition: Stable Consults 1. Killian Moctezuma MD, Infectious Diseases. 2. Tarik Garza DPM, Podiatry. Procedures OPERATIVE REPORT DATE OF OPERATION: 10/30/2018 PREOPERATIVE DIAGNOSIS: Osteomyelitis of the 1st metatarsal head, right foot. POSTOPERATIVE DIAGNOSIS: Osteomyelitis of the 1st metatarsal head, right foot. OPERATION PERFORMED: Resection of the head and neck of 1st metatarsal bone, right foot. Hx of Present Illness This is an 83-year-old male with a past medical history of diabetes mellitus type 2, hypertension, atrial fibrillation, chronic kidney disease, GERD, peripheral artery disease, CAD status post coronary artery bypass grafting, and right foot osteomyelitis status post right first and second toe amputation. The patient was discharged home on March 12, 2018 after treatment for right foot osteomyelitis along with amputation of the right first and second toe. The patient's wound culture that was done on 03/09/2018 was showing positive Klebsiella oxytoca, Staph aureus, and Corynebacterium jeikeium. As per the patient's family, the patient was on antimicrobials prescribed by the podiatris t. The patient's wound was not getting better and therefore, the patient's rampman brought him to the hospital for surgical intervention of the right foot. In the emergency room, the patient's WBC was within normal limits. The patient had a BUN and creatinine of 24 and 1.3 respectively. The patient's right foot X- ray done on 09/21/2018 was showing lysis of the first metatarsal head medially and laterally consistent with osteomyelitis. Hospital Course The patient underwent resection of the head and neck on 10/30/2018. The patient's surgical dressing was evaluated by the rampman on 10/31/2018. The patient was cleared by the rampman to be discharged home. Home health was arranged for daily wound care. The patient was maintained on Zosyn and vancomycin for his underlying osteomyelitis. Upon discharge, the patient will be maintained on Levaquin plus doxycycline to complete a course of 2 weeks as per the conversation with the patient's rampman as well as infectious diseases specialist. The patient's chronic problems include diabetes mellitus type 2. The patient was maintained on sliding scale insulin. The patient's hemoglobin A1c was found to be 6.9. The patient has a history of CAD and he is status post coronary artery bypass grafting. The patient was maintained on his cardiac medications. The patient was maintained on statins for his underlying dyslipidemia. The patient has a history of paroxysmal atrial fibrillation. The patient remained in regular rhythm during the hospitalization. The patient's rivaroxaban was put on hold on 10/30/2018 for the planned surgery. The patient's rivaroxaban will be resumed upon discharge. The patient was maintained on antihypertensives for his underlying hypertension. The patient was on Protonix for his underlying GERD. He was maintained on tamsulosin for his benign prostatic hypertrophy. The patient has underlying chronic kidney disease. The patient's BUN and creatinine were monitored closely. Upon discharge, the patient will be discharged on a renal dose of fluoroquinolones. The patient had a stable hospital course. Discharge Instructions 1. Resume home medications. 2. Weightbearing on the right lower extremity as per podiatry. 3. Take a carbohydrate controlled diet. 4. Follow-up with your Dr. Neri as instructed. 5. Complete the course of antibiotics. The patient's family verbalized understanding of the discharge instructions. At this time I would like to thank all the consultants for seeing the patient, doing the necessary procedures, and providing clinical recommendations. The patient was seen in collaboration with Dr. Silva. Home Meds Active Scripts Doxycycline Hyclate* (Doxycycline Hyclate*) 100 Mg Tablet., 100 MG PO BID, #28 TAB Prov:GISELLE GUILLEN MAIL HANDLERS SUPERVISOR 10/31/18 Levofloxacin* (Levaquin*) 750 Mg Tablet, 750 MG PO Q48H, #7 TAB Renal dose. Prov:GISELLE GUILLEN MAIL HAND[employer] SUPERVISOR 10/31/18 Reported Medications Docusate Sodium* (Colace*) 250 Mg Capsule, 250 MG PO DAILY, #30 CAP 10/30/18 Spironolactone* (Aldactone*) 25 Mg Tablet, 25 MG PO DAILY, #30 TAB 10/30/18 Collagenase* (Santyl*) 30 Gm Oint..gm., 1 APPLIC TOP DAILY, #1 TUB 10/30/18 Ergocalciferol (Vitamin D2) (VITAMIN D2) 50,000 Unit Capsule, 1 CAP ORAL WEEKLY 10/30/18 Ferrous Sulfate* (Ferrous Sulfate*) 325 Mg Tabec, 325 MG PO DAILY, TAB 03/05/18 Sitagliptin* (Januvia*) 100 Mg Tablet, 100 MG PO DAILY, #30 TAB 03/05/18 Rivaroxaban* (Xarelto*) 20 Mg Tablet, 20 MG PO WITH DINNER, TAB 03/05/18 Budesonide-Formoterol Fumarate* (Symbicort*) 160-4.5 Hfa.aer.ad, 2 PUFF INHALATION BID, #1 EACH 03/05/18 Atorvastatin* (Atorvastatin*) 80 Mg Tablet, 80 MG PO QHS, #30 TAB 03/05/18 Tamsulosin Hcl* (Tamsulosin Hcl*) 0.4 Mg Cap.er.24h, 0.4 MG PO DAILY, CAP 03/05/18 Pantoprazole* (Pantoprazole*) 40 Mg Tablet.dr, 40 MG PO AC BREAKFAST DINNER, TAB 03/05/18 Losartan Potassium* (Losartan Potassium*) 50 Mg Tablet, 50 MG PO BID, TAB 03/05/18 Carvedilol* (Carvedilol*) 25 Mg Tablet, 25 MG PO BID, #60 TAB 03/05/18 Nifedipine* (Nifedipine ER*) 30 Mg Tablet.sa, 30 MG PO DAILY, TAB.SA 03/05/18 Furosemide* (Furosemide*) 20 Mg Tablet, 20 MG PO DAILY, #60 TAB 03/05/18 Glimepiride* (Glimepiride*) 4 Mg Tablet, 4 MG PO WITH BREAKFAST DINNE, TAB 03/05/18 Insulin Degludec (Tresiba Flextouch U-100) 100 Unit/1 Ml Insuln.pen, 30 UNIT SQ QHS 03/05/18 Discontinued Reported Medications Naproxen* (Naproxen*) 500 Mg Tablet, 500 MG PO BID PRN for PAIN LEVEL 4-6, TAB 10/30/18 Ranitidine Hcl* (Ranitidine Hcl*) 150 Mg Tablet, 150 MG PO HS, #30 TAB 03/05/18 Spironolactone* (Aldactone*) 5 Mg/Ml (COMPOUNDED) Susp, 12.5 MG PO DAILY for 30 Days, BOTTLE (COMPOUNDED) 03/05/18 Canagliflozin (Invokana) 300 Mg Tablet, 300 MG PO DAILY, TAB 03/05/18 Discontinued Scripts Levofloxacin* (Levaquin*) 500 Mg Tablet, 500 MG PO DAILY for 14 Days, TAB Prov:BRENTAMAYA 03/12/18 Follow-up Plan Patient to follow-up with the rampman as scheduled. Primary Care Provider Not On Staff Doctor Time spent on discharge: > 30 minutes Pending Labs Laboratory Tests Test 10/30/18 16:21 10/30/18 17:03 10/30/18 18:46 10/30/18 21:35 Erythrocyte 20 mm/Hr (0-20) Sedimentation Rate Bedside 72 86 80 Glucose mg/dL (70-220) mg/dL (70-220) mg/dL (70-220) Test 10/31/18 06:38 10/31/18 08:05 10/31/18 12:16 White Blood 7.2 Count 10^3/ul (4.8-10 .8) Red Blood 3.12 Count 10^6/ul (4.70-6 .10) Hemoglobin 9.2 g/dl (14.0-18.0 ) Hematocrit 29.2 % (42.0-52.0) Mean 93.6 Corpuscular fl (82.0-101.0) Volume Mean 29.5 Corpuscular pg (29.0-33.0) Hemoglobin Mean 31.5 Corpuscular g/dl (32.0-37.0 Hemoglobin Conc ) ent Red Cell 12.9 Distribution % (11.5-14.5) Width Platelet Count 196 10^3/UL (140-41 5) Mean Platelet 10.6 Volume fl (7.4-10.4) Immature 0.600 Granulocytes % % (0.001-0.429) Neutrophils % 61.8 % (39.0-77.0) Lymphocytes % 22.2 % (15.0-51.0) Monocytes % 8.6 % (0.0-11.0) Eosinophils % 6.1 % (0.0-7.0) Basophils % 0.7 % (0.0-2.0) Nucleated Red 0.0 Blood Cells % /100WBC (0.0-0. 0) Immature 0.040 Granulocytes # 10^3/ul (0.0-0. 031) Neutrophils # 4.5 10^3/ul (1.6-7. 5) Lymphocytes # 1.6 10^3/ul (0.8-2. 9) Monocytes # 0.6 10^3/ul (0.3-0. 9) Eosinophils # 0.4 10^3/ul (0.0-0. 5) Basophils # 0.1 10^3/ul (0.0-0. 1) Nucleated Red 0.0 Blood Cells # 10^3/ul (0.0-0. 0) Sodium Level 143 mmol/L (135-144 ) Potassium 3.8 Level mmol/L (3.5-5.1 ) Chloride Level 109 mmol/L (97-110) Carbon Dioxide 25 Level mmol/L (21-31) Anion Gap 9 (5-13) Blood Urea 19 mg/dl (7-20) Nitrogen Creatinine 1.29 mg/dl (0.61-1.2 4) Est Glomerular mL/min (>60) Filtrat Rate mL/min Glucose Level 152 mg/dl (70-220) Calcium Level 9.4 mg/dl (8.4-10.2 ) Phosphorus 4.1 Level mg/dl (2.5-4.9) Magnesium 1.7 Level mg/dl (1.7-2.5) Total 0.2 Bilirubin mg/dl (0.2-1.3) Direct 0.00 Bilirubin mg/dl (0.00-0.2 0) Indirect 0.2 Bilirubin mg/dl (0-1.1) Aspartate Amino 25 IU/L (15-46) Transf (AST/SGO T) Alanine 16 IU/L (13-69) Aminotransferas e (ALT/SGPT) Alkaline 46 Phosphatase IU/L (42-121) Total Protein 5.9 g/dl (6.1-8.1) Albumin 3.2 g/dl (3.3-4.9) Globulin 2.70 g/dl (1.3-3.2) Albumin/Globuli 1.18 n Ratio Triglycerides 110 Level mg/dl (0-149) Cholesterol 97 Level mg/dl (100-200) LDL 40 mg/dl Cholesterol, Calculated HDL 35 Cholesterol mg/dl (31-75) Cholesterol/HDL 2.7 RATIO Ratio Bedside 161 217 Glucose mg/dL (70-220) mg/dL (70-220) GISELLE GUILLEN NP Oct 31, 2018 16:02
[2018-10-31 20:23] VITALS: BP 128/68; PULSE 64; RESP 18
== END 2018-10-31 20:38 | disposition home or self-care (01) ==
LOC: E/R 07:13 → PP2 09:05
PROVIDERS: ADMIT Internal Medicine; ATTEND Internal Medicine
DX: M86.671 Other chronic osteomyelitis, right ankle and foot (principal); I25.10 Atherosclerotic heart disease of native coronary artery without angina pectoris; Z95.1 Presence of aortocoronary bypass graft; I12.9 Hypertensive chronic kidney disease with stage 1 through stage 4 chronic kidney disease, or unspecified chronic kidney disease; E11.22 Type 2 diabetes mellitus with diabetic chronic kidney disease; N18.9 Chronic kidney disease, unspecified; E78.5 Hyperlipidemia, unspecified; Z95.0 Presence of cardiac pacemaker; I48.0 Paroxysmal atrial fibrillation; K21.9 Gastro-esophageal reflux disease without esophagitis; N40.0 Benign prostatic hyperplasia without lower urinary tract symptoms; I25.2 Old myocardial infarction
CPT/HCPCS: 28104; 36415; 71045; 80053; 80061; 82962; 83036; 83735; 84100; 85025; 85610; 85651; 85730; 86140; 88304; 88311; 93005; 96360; 99285; G0378; J1815; J2543; J3370; J7030; J7040; J7042; J7050